=== PATIENT | female | born 1945 | race Asian ===

== ENCOUNTER 2017-06-04 10:17 | Inpatient (IN) | payer MEDICARE, OTHER ==
[2017-06-04] MEDS: morphine 4 MG/ML VIAL IV (13:05)
[2017-06-04] MEDS: ONDANSETRON 4 MG INJ IV (13:05)
[2017-06-04 13:09] LABS: ADD MAN DIFF? NO
[2017-06-04 13:14] LABS: WHITE BLOOD COUNT 8.3 10^3/ul (4.8-10.8)
[2017-06-04 13:14] LABS: BASOPHILS % 0.5 % (0.0-2.0); EOSINOPHILS # 0.2 10^3/ul (0.0-0.5); EOSINOPHILS % 2.4 % (0.0-7.0); HEMATOCRIT 36.7 % (37.0-47.0); LYMPHOCYTES # 1.6 10^3/ul (0.8-2.9); LYMPHOCYTES % 19.3 % (15.0-51.0); MEAN CORPUSCULAR HEMOGLOBIN 20.3 pg (29.0-33.0); MEAN CORPUSCULAR VOLUME 67.7 fl (82.0-101.0); MEAN PLATELET VOLUME 8.5 fl (7.4-10.4); MONOCYTE # 0.7 10^3/ul (0.3-0.9); MONOCYTES % 7.9 % (0.0-11.0); NEUTROPHIL # 5.8 10^3/ul (1.6-7.5); NEUTROPHILS % 69.5 % (39.0-77.0); PLATELET COUNT 360 10^3/UL (140-415); RED BLOOD COUNT 5.42 10^6/ul (4.20-5.40); RED CELL DISTRIBUTION WIDTH 17.7 % (11.5-14.5)
[2017-06-04 13:27] LABS: ADD UMIC YES; UR AMORPHOUS CRYSTAL FEW /HPF (NONE SEEN); UR ASCORBIC ACID NEGATIVE (NEGATIVE); UR BACTERIA FEW /HPF (NONE SEEN); UR BILIRUBIN (Dip) NEGATIVE (NEGATIVE); UR BLOOD (Dip) 3+ mg/dL (NEGATIVE); UR CLARITY SLIGHTLY CLOUDY (CLEAR); UR COLOR YELLOW (YELLOW); UR GLUCOSE (Dip) NEGATIVE (NEGATIVE); UR KETONES (Dip) NEGATIVE (NEGATIVE); UR LEUKOCYTE ESTERASE (Dip) 3+ Leu/ul (NEGATIVE); UR NITRITE (Dip) POSITIVE (NEGATIVE); UR RBC 40 /HPF (0-5); UR SPECIFIC GRAVITY (Dip) 1.015 (1.003-1.030); UR TOTAL PROTEIN (Dip) 1+ mg/dl (NEGATIVE); UR UROBILINOGEN (Dip) NEGATIVE (NEGATIVE); UR WBC > 182 /HPF (0-5)
[2017-06-04 13:38] LABS: ALANINE AMINOTRANSFERASE 32 IU/L (13-69); ALKALINE PHOSPHATASE 77 IU/L (42-121); ANION GAP 14 (8-16); ASPARTATE AMINO TRANSFERASE 28 IU/L (15-46); BILIRUBIN,INDIRECT 0.3 mg/dl (0-1.1); BILIRUBIN,TOTAL 0.3 mg/dl (0.2-1.3); BLOOD UREA NITROGEN 26 mg/dl (7-20); CALCIUM 9.2 mg/dl (8.4-10.2); CARBON DIOXIDE 29 mmol/L (21-31); CHLORIDE 107 mmol/L (97-110); CREATININE 1.41 mg/dl (0.44-1.00); GLUCOSE 110 mg/dl (70-220); LIPASE 72 U/L (23-300); POTASSIUM 4.3 mmol/L (3.5-5.1); SODIUM 146 mmol/L (135-144)
[2017-06-04 13:49] LABS: TROPONIN-I < 0.012 ng/ml (0.00-0.12)
[2017-06-04] MEDS: HYDROmorphONE 1 MG/ML SYG IV (14:29)
[2017-06-04] MEDS ORDERED: ACETAMINOPHEN 325 MG TAB PO (14:30)
[2017-06-04] MEDS ORDERED: ONDANSETRON 4 MG INJ IV (14:30)
[2017-06-04] MEDS: CEFTRIAXONE 1 GM/50 ML (PMX) 50 ML IVPB ×2 (14:41→20:04)
[2017-06-04] MEDS: DEXTROSE 5%-0.45% NACL 1,000 ML IV (20:04)
[2017-06-05 05:59] LABS: ADD MAN DIFF? NO
[2017-06-05 06:13] LABS: BASOPHILS % 0.6 % (0.0-2.0); EOSINOPHILS # 0.3 10^3/ul (0.0-0.5); EOSINOPHILS % 3.8 % (0.0-7.0); HEMATOCRIT 32.2 % (37.0-47.0); HEMOGLOBIN 9.8 g/dl (12.0-16.0); LYMPHOCYTES # 1.6 10^3/ul (0.8-2.9); LYMPHOCYTES % 22.8 % (15.0-51.0); MEAN CORPUSCULAR HEMOGLOBIN 20.4 pg (29.0-33.0); MEAN CORPUSCULAR HGB CONC 30.4 g/dl (32.0-37.0); MEAN CORPUSCULAR VOLUME 66.9 fl (82.0-101.0); MEAN PLATELET VOLUME 8.8 fl (7.4-10.4); MONOCYTE # 0.6 10^3/ul (0.3-0.9); MONOCYTES % 8.7 % (0.0-11.0); NEUTROPHIL # 4.6 10^3/ul (1.6-7.5); NEUTROPHILS % 63.8 % (39.0-77.0); PLATELET COUNT 336 10^3/UL (140-415); RED BLOOD COUNT 4.81 10^6/ul (4.20-5.40); RED CELL DISTRIBUTION WIDTH 16.6 % (11.5-14.5)
[2017-06-05 06:13] LABS: WHITE BLOOD COUNT 7.2 10^3/ul (4.8-10.8)
[2017-06-05 06:17] LABS: INR 0.91; PARTIAL THROMBOPLASTIN TIME 27.3 Sec (25.0-35.0); PROTIME 12.3 Sec (11.9-14.9)
[2017-06-05 06:35] LABS: ALANINE AMINOTRANSFERASE 33 IU/L (13-69); ALBUMIN 3.4 g/dl (3.3-4.9); ALBUMIN/GLOBULIN RATIO 1.06; ALKALINE PHOSPHATASE 67 IU/L (42-121); AMYLASE 58 U/L (11-123); ANION GAP 11 (8-16); ASPARTATE AMINO TRANSFERASE 24 IU/L (15-46); BILIRUBIN,INDIRECT 0.4 mg/dl (0-1.1); BILIRUBIN,TOTAL 0.4 mg/dl (0.2-1.3); BLOOD UREA NITROGEN 24 mg/dl (7-20); CALCIUM 8.7 mg/dl (8.4-10.2); CARBON DIOXIDE 29 mmol/L (21-31); CHLORIDE 107 mmol/L (97-110); CREATININE 1.45 mg/dl (0.44-1.00); GLUCOSE 118 mg/dl (70-220); LIPASE 52 U/L (23-300); POTASSIUM 3.9 mmol/L (3.5-5.1); SODIUM 143 mmol/L (135-144); TOTAL PROTEIN 6.6 g/dl (6.1-8.1)
[2017-06-05] MEDS: DEXTROSE 5%-0.45% NACL 1,000 ML IV ×2 (08:20→10:48)
[2017-06-05] MEDS ORDERED: ENOXAPARIN 30 MG/0.3 ML SYG SC (09:00)
[2017-06-05] MEDS: ENOXAPARIN 30 MG/0.3 ML SYG SC (09:14)
[2017-06-05] MEDS: HYDROCODONE/APAP (10/325) TAB PO ×2 (10:54→19:47)
[2017-06-05] MEDS: CEFTRIAXONE 1 GM/50 ML (PMX) 50 ML IVPB (17:32)
[2017-06-05 19:10] LABS: MAGNESIUM 1.2 mg/dl (1.7-2.5)
[2017-06-05 19:21] LABS: TROPONIN-I < 0.012 ng/ml (0.00-0.12)
[2017-06-06] MEDS: MAGNESIUM SULFATE 2 GM/50 ML 50 ML IVPB ×2 (01:12→10:05)
[2017-06-06] MEDS: DEXTROSE 5%-0.45% NACL 1,000 ML IV ×2 (03:34→11:56)
[2017-06-06] MEDS ORDERED: CEFAZOLIN 1 GM INJ (07:00)
[2017-06-06] MEDS ORDERED: MIDAZOLAM 1 MG/ML 2 ML INJ (07:31)
[2017-06-06] MEDS ORDERED: FENTAnyl 50 MCG/ML VIAL (07:31)
[2017-06-06] MEDS ORDERED: LIDOCAINE 100 MG SYRINGE (07:32)
[2017-06-06] MEDS ORDERED: PROPOFOL 20 ML (07:32)
[2017-06-06] MEDS ORDERED: METOCLOPRAMIDE 10 MG INJ (07:34)
[2017-06-06] MEDS ORDERED: ONDANSETRON 4 MG INJ (07:34)
[2017-06-06] MEDS ORDERED: DIPHENHYDRAMINE 50 MG INJ IV (08:00)
[2017-06-06] MEDS ORDERED: FENTAnyl 50 MCG/ML VIAL IV (08:00)
[2017-06-06] MEDS ORDERED: KETOROLAC 15 MG INJ IV (08:00)
[2017-06-06] MEDS ORDERED: ONDANSETRON 4 MG INJ IV (08:00)
[2017-06-06] MEDS ORDERED: HYDROmorphONE (0.2 MG/ML) 10ML SYG IV ×2 (08:00)
[2017-06-06] MEDS ORDERED: LABETALOL HCL 20MG INJ IV (08:00)
[2017-06-06] MEDS ORDERED: hydrALAzine 20 MG INJ IV (08:00)
[2017-06-06] MEDS ORDERED: METOPROLOL 5 MG INJ ×2 (08:16→08:29)
[2017-06-06] MEDS: METOPROLOL 5 MG INJ IV ×2 (08:20→09:57)
[2017-06-06] MEDS ORDERED: ESMOLOL 10 ML (08:24)
[2017-06-06] MEDS: ENOXAPARIN 30 MG/0.3 ML SYG SC (09:00)
[2017-06-06 09:10] LABS: ADD MAN DIFF? NO
[2017-06-06 09:18] LABS: BASOPHILS % 0.4 % (0.0-2.0); EOSINOPHILS # 0.3 10^3/ul (0.0-0.5); EOSINOPHILS % 3.4 % (0.0-7.0); HEMATOCRIT 35.8 % (37.0-47.0); HEMOGLOBIN 10.6 g/dl (12.0-16.0); LYMPHOCYTES # 1.5 10^3/ul (0.8-2.9); LYMPHOCYTES % 20.2 % (15.0-51.0); MEAN CORPUSCULAR HEMOGLOBIN 20.4 pg (29.0-33.0); MEAN CORPUSCULAR HGB CONC 29.6 g/dl (32.0-37.0); MEAN PLATELET VOLUME 8.6 fl (7.4-10.4); MONOCYTE # 0.6 10^3/ul (0.3-0.9); MONOCYTES % 7.8 % (0.0-11.0); NEUTROPHIL # 5.1 10^3/ul (1.6-7.5); NEUTROPHILS % 67.3 % (39.0-77.0); NUCLEATED RED BLOOD CELLS% 0.3 /100WBC (0.0-0.0); PLATELET COUNT 295 10^3/UL (140-415); RED BLOOD COUNT 5.19 10^6/ul (4.20-5.40); RED CELL DISTRIBUTION WIDTH 16.9 % (11.5-14.5)
[2017-06-06 09:18] LABS: WHITE BLOOD COUNT 7.6 10^3/ul (4.8-10.8)
[2017-06-06 09:42] LABS: ANION GAP 12 (8-16); BLOOD UREA NITROGEN 22 mg/dl (7-20); CALCIUM 8.7 mg/dl (8.4-10.2); CARBON DIOXIDE 26 mmol/L (21-31); CHLORIDE 107 mmol/L (97-110); CREATININE 1.28 mg/dl (0.44-1.00); GLUCOSE 112 mg/dl (70-220); MAGNESIUM 1.7 mg/dl (1.7-2.5); POTASSIUM 4.1 mmol/L (3.5-5.1); SODIUM 141 mmol/L (135-144)
[2017-06-06] MEDS: ACETAMINOPHEN 325 MG TAB PO (14:51)
[2017-06-06] MEDS: CEFTRIAXONE 1 GM/50 ML (PMX) 50 ML IVPB (18:15)
[2017-06-07] MEDS: DEXTROSE 5%-0.45% NACL 1,000 ML IV ×2 (00:01→12:58)
[2017-06-07 07:51] LABS: ANION GAP 11 (8-16); BLOOD UREA NITROGEN 17 mg/dl (7-20); CALCIUM 8.7 mg/dl (8.4-10.2); CARBON DIOXIDE 30 mmol/L (21-31); CHLORIDE 104 mmol/L (97-110); CREATININE 1.34 mg/dl (0.44-1.00); GLUCOSE 118 mg/dl (70-220); MAGNESIUM 1.7 mg/dl (1.7-2.5); POTASSIUM 4.5 mmol/L (3.5-5.1); SODIUM 140 mmol/L (135-144)
[2017-06-07] MEDS: ATENOLOL 25 MG TAB PO (09:31)
[2017-06-07] MEDS: ENOXAPARIN 30 MG/0.3 ML SYG SC (09:37)
[2017-06-07] MEDS: CEFTRIAXONE 1 GM/50 ML (PMX) 50 ML IVPB (17:31)
[2017-06-08] MEDS: DEXTROSE 5%-0.45% NACL 1,000 ML IV ×2 (02:48→14:57)
[2017-06-08 08:53] LABS: ADD MAN DIFF? NO
[2017-06-08] MEDS: ENOXAPARIN 30 MG/0.3 ML SYG SC (09:00)
[2017-06-08 09:01] LABS: WHITE BLOOD COUNT 7.3 10^3/ul (4.8-10.8)
[2017-06-08 09:01] LABS: BASOPHILS % 0.4 % (0.0-2.0); EOSINOPHILS # 0.4 10^3/ul (0.0-0.5); EOSINOPHILS % 5.9 % (0.0-7.0); HEMATOCRIT 33.7 % (37.0-47.0); HEMOGLOBIN 10.3 g/dl (12.0-16.0); LYMPHOCYTES # 1.6 10^3/ul (0.8-2.9); LYMPHOCYTES % 21.7 % (15.0-51.0); MEAN CORPUSCULAR HEMOGLOBIN 20.6 pg (29.0-33.0); MEAN CORPUSCULAR HGB CONC 30.6 g/dl (32.0-37.0); MEAN CORPUSCULAR VOLUME 67.4 fl (82.0-101.0); MEAN PLATELET VOLUME 8.8 fl (7.4-10.4); MONOCYTE # 0.6 10^3/ul (0.3-0.9); MONOCYTES % 7.9 % (0.0-11.0); NEUTROPHIL # 4.6 10^3/ul (1.6-7.5); NEUTROPHILS % 63.7 % (39.0-77.0); PLATELET COUNT 349 10^3/UL (140-415)
[2017-06-08 09:27] LABS: ANION GAP 13 (8-16); BLOOD UREA NITROGEN 16 mg/dl (7-20); CALCIUM 9.4 mg/dl (8.4-10.2); CARBON DIOXIDE 30 mmol/L (21-31); CHLORIDE 105 mmol/L (97-110); CREATININE 1.28 mg/dl (0.44-1.00); GLUCOSE 115 mg/dl (70-220); POTASSIUM 4.6 mmol/L (3.5-5.1); SODIUM 143 mmol/L (135-144)
[2017-06-08] MEDS: hydrALAzine 20 MG INJ IV (12:50)
[2017-06-08] MEDS: ACETAMINOPHEN 325 MG TAB PO (12:55)
[2017-06-08] MEDS ORDERED: METOPROLOL 5 MG INJ IV (14:00)
[2017-06-08] MEDS: DIGOXIN 500 MCG INJ IV (14:10)
[2017-06-08] MEDS: AMPICILLIN 500 MG in SOD CHLORIDE 0.9% 50 ML IVPB ×2 (18:07→22:06)
[2017-06-08] MEDS: METOPROLOL 25 MG TAB PO (22:06)
[2017-06-09] MEDS: hydrALAzine 20 MG INJ IV (00:51)
[2017-06-09] MEDS: morphine 2 MG INJ IV ×2 (03:01→11:56)
[2017-06-09] MEDS: AMPICILLIN 500 MG in SOD CHLORIDE 0.9% 50 ML IVPB ×3 (06:24→18:02)
[2017-06-09] MEDS: DEXTROSE 5%-0.45% NACL 1,000 ML IV ×2 (06:26→20:45)
[2017-06-09 08:22] LABS: ADD MAN DIFF? NO
[2017-06-09 08:38] LABS: BASOPHILS % 0.3 % (0.0-2.0); EOSINOPHILS # 0.1 10^3/ul (0.0-0.5); EOSINOPHILS % 0.9 % (0.0-7.0); HEMATOCRIT 35.6 % (37.0-47.0); HEMOGLOBIN 11.1 g/dl (12.0-16.0); LYMPHOCYTES # 1.3 10^3/ul (0.8-2.9); LYMPHOCYTES % 12.4 % (15.0-51.0); MEAN CORPUSCULAR HEMOGLOBIN 20.5 pg (29.0-33.0); MEAN CORPUSCULAR HGB CONC 31.2 g/dl (32.0-37.0); MEAN CORPUSCULAR VOLUME 65.7 fl (82.0-101.0); MEAN PLATELET VOLUME 9.1 fl (7.4-10.4); MONOCYTE # 0.6 10^3/ul (0.3-0.9); MONOCYTES % 5.3 % (0.0-11.0); NEUTROPHIL # 8.6 10^3/ul (1.6-7.5); NEUTROPHILS % 80.5 % (39.0-77.0); NUCLEATED RED BLOOD CELLS% 0.2 /100WBC (0.0-0.0); PLATELET COUNT 388 10^3/UL (140-415); RED BLOOD COUNT 5.42 10^6/ul (4.20-5.40); RED CELL DISTRIBUTION WIDTH 17.6 % (11.5-14.5)
[2017-06-09 08:38] LABS: WHITE BLOOD COUNT 10.7 10^3/ul (4.8-10.8)
[2017-06-09 08:55] LABS: ANION GAP 14 (8-16); BLOOD UREA NITROGEN 20 mg/dl (7-20); CALCIUM 9.5 mg/dl (8.4-10.2); CARBON DIOXIDE 26 mmol/L (21-31); CHLORIDE 102 mmol/L (97-110); GLUCOSE 134 mg/dl (70-220); POTASSIUM 4.3 mmol/L (3.5-5.1); SODIUM 138 mmol/L (135-144)
[2017-06-09] MEDS: METOPROLOL 25 MG TAB PO ×2 (09:14→20:45)
[2017-06-09] MEDS: ENOXAPARIN 30 MG/0.3 ML SYG SC (09:17)
[2017-06-09] MEDS: ONDANSETRON 4 MG INJ IV (12:02)
[2017-06-10] MEDS: AMPICILLIN 500 MG in SOD CHLORIDE 0.9% 50 ML IVPB ×2 (00:55→05:52)
[2017-06-10 09:11] LABS: ADD MAN DIFF? NO
[2017-06-10 09:40] LABS: WHITE BLOOD COUNT 6.8 10^3/ul (4.8-10.8)
[2017-06-10 09:40] LABS: BASOPHILS % 0.4 % (0.0-2.0); EOSINOPHILS # 0.6 10^3/ul (0.0-0.5); EOSINOPHILS % 8.1 % (0.0-7.0); HEMATOCRIT 37.2 % (37.0-47.0); HEMOGLOBIN 11.4 g/dl (12.0-16.0); LYMPHOCYTES # 1.1 10^3/ul (0.8-2.9); LYMPHOCYTES % 16.9 % (15.0-51.0); MEAN CORPUSCULAR HEMOGLOBIN 20.4 pg (29.0-33.0); MEAN CORPUSCULAR HGB CONC 30.6 g/dl (32.0-37.0); MEAN CORPUSCULAR VOLUME 66.7 fl (82.0-101.0); MEAN PLATELET VOLUME 8.9 fl (7.4-10.4); MONOCYTE # 0.7 10^3/ul (0.3-0.9); MONOCYTES % 10.9 % (0.0-11.0); NEUTROPHIL # 4.3 10^3/ul (1.6-7.5); NEUTROPHILS % 63.3 % (39.0-77.0); PLATELET COUNT 366 10^3/UL (140-415); RED BLOOD COUNT 5.58 10^6/ul (4.20-5.40)
[2017-06-10 09:43] LABS: ANION GAP 13 (8-16); BLOOD UREA NITROGEN 16 mg/dl (7-20); CALCIUM 9.2 mg/dl (8.4-10.2); CARBON DIOXIDE 28 mmol/L (21-31); CHLORIDE 103 mmol/L (97-110); CREATININE 1.31 mg/dl (0.44-1.00); GLUCOSE 120 mg/dl (70-220); MAGNESIUM 1.4 mg/dl (1.7-2.5); POTASSIUM 4.1 mmol/L (3.5-5.1); SODIUM 140 mmol/L (135-144)
[2017-06-10] MEDS: DEXTROSE 5%-0.45% NACL 1,000 ML IV ×2 (09:44→21:40)
[2017-06-10] MEDS: ENOXAPARIN 30 MG/0.3 ML SYG SC (09:47)
[2017-06-10] MEDS: METOPROLOL 25 MG TAB PO ×2 (09:47→21:02)
[2017-06-10] MEDS: AMOXICILLIN 500 MG CAP PO ×2 (13:46→22:25)
[2017-06-10] MEDS: MAGNESIUM SULFATE 2 GM/50 ML 50 ML IVPB (13:46)
[2017-06-10] MEDS: AMIODARONE 200 MG TAB PO (21:01)
[2017-06-11] MEDS: DEXTROSE 5%-0.45% NACL 1,000 ML IV ×2 (02:17→11:10)
[2017-06-11] MEDS: AMOXICILLIN 500 MG CAP PO ×3 (05:28→22:00)
[2017-06-11] MEDS ORDERED: CEFAZOLIN 1 GM INJ (07:00)
[2017-06-11] MEDS: AMIODARONE 200 MG TAB PO ×3 (08:12→21:00)
[2017-06-11] MEDS: METOPROLOL 25 MG TAB PO ×2 (08:12→21:00)
[2017-06-11] MEDS: ENOXAPARIN 60 MG/0.6 ML SYG SC (08:12)
[2017-06-11 09:58] LABS: ADD MAN DIFF? NO
[2017-06-11 10:03] LABS: WHITE BLOOD COUNT 5.6 10^3/ul (4.8-10.8)
[2017-06-11 10:03] LABS: BASOPHILS % 0.5 % (0.0-2.0); EOSINOPHILS # 0.6 10^3/ul (0.0-0.5); EOSINOPHILS % 10.4 % (0.0-7.0); HEMATOCRIT 36.5 % (37.0-47.0); LYMPHOCYTES # 1.4 10^3/ul (0.8-2.9); LYMPHOCYTES % 25.1 % (15.0-51.0); MEAN CORPUSCULAR HEMOGLOBIN 19.9 pg (29.0-33.0); MEAN CORPUSCULAR HGB CONC 30.1 g/dl (32.0-37.0); MEAN CORPUSCULAR VOLUME 66.1 fl (82.0-101.0); MEAN PLATELET VOLUME 8.6 fl (7.4-10.4); MONOCYTE # 0.8 10^3/ul (0.3-0.9); MONOCYTES % 13.6 % (0.0-11.0); NEUTROPHIL # 2.8 10^3/ul (1.6-7.5); NEUTROPHILS % 49.9 % (39.0-77.0); PLATELET COUNT 350 10^3/UL (140-415); RED BLOOD COUNT 5.52 10^6/ul (4.20-5.40); RED CELL DISTRIBUTION WIDTH 17.7 % (11.5-14.5)
[2017-06-11 10:21] LABS: ANION GAP 13 (8-16); BLOOD UREA NITROGEN 18 mg/dl (7-20); CALCIUM 8.6 mg/dl (8.4-10.2); CARBON DIOXIDE 27 mmol/L (21-31); CHLORIDE 104 mmol/L (97-110); CREATININE 1.33 mg/dl (0.44-1.00); GLUCOSE 108 mg/dl (70-220); POTASSIUM 4.1 mmol/L (3.5-5.1); SODIUM 140 mmol/L (135-144)
[2017-06-11] MEDS ORDERED: IOHEXOL 300MG/ML 30 ML BTL (15:43)
[2017-06-11] MEDS ORDERED: INDOMETHACIN 50 MG SUPP PR (15:44)
[2017-06-11] MEDS ORDERED: FENTAnyl 50 MCG/ML VIAL (16:52)
[2017-06-11] MEDS ORDERED: ROCURONIUM 50 MG INJ (17:23)
[2017-06-11] MEDS ORDERED: SUGAMMADEX SODIUM 200 MG/2 ML VIAL IV (17:23)
[2017-06-11] MEDS ORDERED: ETOMIDATE 20 MG INJ (17:23)
[2017-06-11] MEDS ORDERED: ONDANSETRON 4 MG INJ IV (18:00)
[2017-06-11] MEDS ORDERED: DIPHENHYDRAMINE 50 MG INJ IV (18:00)
[2017-06-11] MEDS ORDERED: EPHEDrine SULFATE 50 MG/5 ML SYG IV (18:00)
[2017-06-11] MEDS ORDERED: FENTAnyl 50 MCG/ML VIAL IV ×3 (18:00)
[2017-06-11] MEDS ORDERED: ALBUTEROL 0.083% (NEB) 2.5 MG/3 ML AMP HHN (18:00)
[2017-06-11] MEDS ORDERED: MEPERIDINE 25 MG INJ IV (18:00)
[2017-06-11] MEDS ORDERED: KETOROLAC 30 MG INJ IV (18:00)
[2017-06-11] MEDS ORDERED: METOCLOPRAMIDE 10 MG INJ IV (18:00)
[2017-06-11] MEDS ORDERED: hydrALAzine 20 MG INJ IV (18:00)
[2017-06-11] MEDS ORDERED: LABETALOL HCL 20MG INJ IV (18:00)
[2017-06-11] MEDS ORDERED: HYDROmorphONE (0.2 MG/ML) 10ML SYG IV ×2 (18:00)
[2017-06-11 18:44] LABS: CANCER ANTIGEN 19-9 27.2 U/ml (0.0-37.0)
[2017-06-11 19:09] LABS: ALPHA FETOPROTEIN 1.85 IU/L (0.00-7.21)
[2017-06-11] MEDS: morphine LIQ (10 MG/5 ML) CUP PO (19:25)
[2017-06-11] MEDS: HYDROCODONE/APAP (10/325) TAB PO (19:33)
[2017-06-11] MEDS: HYDROmorphONE 0.5 MG/0.5 ML SYG IV (20:50)
[2017-06-12] MEDS: DEXTROSE 5%-0.45% NACL 1,000 ML IV ×3 (00:09→23:12)
[2017-06-12] MEDS: HYDROmorphONE 0.5 MG/0.5 ML SYG IV ×4 (01:52→20:39)
[2017-06-12] MEDS: AMOXICILLIN 500 MG CAP PO (05:30)
[2017-06-12] MEDS: morphine 2 MG INJ IV ×2 (05:31→11:22)
[2017-06-12 08:27] LABS: ADD MAN DIFF? NO
[2017-06-12 08:33] LABS: WHITE BLOOD COUNT 9.3 10^3/ul (4.8-10.8)
[2017-06-12 08:33] LABS: BASOPHILS % 0.2 % (0.0-2.0); EOSINOPHILS # 0.1 10^3/ul (0.0-0.5); EOSINOPHILS % 1.5 % (0.0-7.0); HEMATOCRIT 36.2 % (37.0-47.0); HEMOGLOBIN 11.2 g/dl (12.0-16.0); LYMPHOCYTES # 0.8 10^3/ul (0.8-2.9); LYMPHOCYTES % 8.8 % (15.0-51.0); MEAN CORPUSCULAR HEMOGLOBIN 20.7 pg (29.0-33.0); MEAN CORPUSCULAR HGB CONC 30.9 g/dl (32.0-37.0); MEAN CORPUSCULAR VOLUME 66.9 fl (82.0-101.0); MEAN PLATELET VOLUME 9.1 fl (7.4-10.4); MONOCYTE # 0.5 10^3/ul (0.3-0.9); MONOCYTES % 5.1 % (0.0-11.0); NEUTROPHIL # 7.8 10^3/ul (1.6-7.5); NEUTROPHILS % 83.8 % (39.0-77.0); PLATELET COUNT 373 10^3/UL (140-415); RED BLOOD COUNT 5.41 10^6/ul (4.20-5.40); RED CELL DISTRIBUTION WIDTH 17.2 % (11.5-14.5)
[2017-06-12 08:53] LABS: ANION GAP 14 (8-16); BLOOD UREA NITROGEN 20 mg/dl (7-20); CALCIUM 8.2 mg/dl (8.4-10.2); CARBON DIOXIDE 28 mmol/L (21-31); CHLORIDE 100 mmol/L (97-110); CREATININE 1.25 mg/dl (0.44-1.00); GLUCOSE 135 mg/dl (70-220); POTASSIUM 4.4 mmol/L (3.5-5.1); SODIUM 138 mmol/L (135-144)
[2017-06-12] MEDS: METOPROLOL 25 MG TAB PO ×2 (08:59→21:00)
[2017-06-12] MEDS: AMIODARONE 200 MG TAB PO ×3 (08:59→21:00)
[2017-06-12] MEDS: ENOXAPARIN 60 MG/0.6 ML SYG SC (09:00)
[2017-06-12] MEDS: ONDANSETRON 4 MG INJ IV (11:22)
[2017-06-12] MEDS: ACETAMINOPHEN 325 MG TAB PO (12:29)
[2017-06-12] MEDS: PIPER-TAZO 3.375 GM IV (PMX) 100 ML IVPB ×2 (15:02→22:10)
[2017-06-12 15:57] LABS: AMYLASE 1173 U/L (11-123)
[2017-06-12 16:21] LABS: LIPASE 6085 U/L (23-300)
[2017-06-12] MEDS: VANCOMYCIN 1 GM (PMX) 250 ML IVPB (17:18)
[2017-06-13] MEDS: ONDANSETRON 4 MG INJ IV ×2 (04:45→17:59)
[2017-06-13] MEDS: HYDROmorphONE 0.5 MG/0.5 ML SYG IV ×5 (04:46→22:36)
[2017-06-13] MEDS: ACETAMINOPHEN 325 MG TAB PO ×2 (04:54→20:15)
[2017-06-13] MEDS: PIPER-TAZO 3.375 GM IV (PMX) 100 ML IVPB ×2 (06:29→13:30)
[2017-06-13 08:58] LABS: ADD MAN DIFF? NO
[2017-06-13] MEDS: METOPROLOL 25 MG TAB PO ×2 (09:00→17:58)
[2017-06-13 09:16] LABS: BASOPHILS % 0.1 % (0.0-2.0); EOSINOPHILS % 0.2 % (0.0-7.0); HEMATOCRIT 34.2 % (37.0-47.0); HEMOGLOBIN 10.4 g/dl (12.0-16.0); LYMPHOCYTES # 1.2 10^3/ul (0.8-2.9); LYMPHOCYTES % 7.4 % (15.0-51.0); MEAN CORPUSCULAR HEMOGLOBIN 20.3 pg (29.0-33.0); MEAN CORPUSCULAR HGB CONC 30.4 g/dl (32.0-37.0); MEAN CORPUSCULAR VOLUME 66.8 fl (82.0-101.0); MEAN PLATELET VOLUME 9.4 fl (7.4-10.4); MONOCYTE # 0.8 10^3/ul (0.3-0.9); MONOCYTES % 4.7 % (0.0-11.0); NEUTROPHIL # 14.5 10^3/ul (1.6-7.5); NEUTROPHILS % 86.8 % (39.0-77.0); PLATELET COUNT 333 10^3/UL (140-415); RED BLOOD COUNT 5.12 10^6/ul (4.20-5.40); RED CELL DISTRIBUTION WIDTH 16.1 % (11.5-14.5)
[2017-06-13 09:16] LABS: WHITE BLOOD COUNT 16.7 10^3/ul (4.8-10.8)
[2017-06-13] MEDS: AMIODARONE 200 MG TAB PO ×3 (09:23→21:49)
[2017-06-13 09:34] LABS: ALANINE AMINOTRANSFERASE 25 IU/L (13-69); ALBUMIN 3.1 g/dl (3.3-4.9); ALBUMIN/GLOBULIN RATIO 0.83; ALKALINE PHOSPHATASE 79 IU/L (42-121); ANION GAP 11 (8-16); ASPARTATE AMINO TRANSFERASE 29 IU/L (15-46); BLOOD UREA NITROGEN 24 mg/dl (7-20); CALCIUM 7.7 mg/dl (8.4-10.2); CARBON DIOXIDE 27 mmol/L (21-31); CHLORIDE 102 mmol/L (97-110); CREATININE 1.78 mg/dl (0.44-1.00); GLUCOSE 109 mg/dl (70-220); POTASSIUM 4.1 mmol/L (3.5-5.1); SODIUM 136 mmol/L (135-144); TOTAL PROTEIN 6.8 g/dl (6.1-8.1)
[2017-06-13] MEDS: ENOXAPARIN 80 MG/0.8 ML SYG SC (10:08)
[2017-06-13] MEDS: HYDROCODONE/APAP (10/325) TAB PO ×2 (11:57→17:59)
[2017-06-13] MEDS: SOD CHLORIDE 0.9% 1,000 ML IV (11:58)
[2017-06-13] MEDS ORDERED: VANCOMYCIN IV PER PHARMACY XX (12:30)
[2017-06-13] MEDS ORDERED: VANCOMYCIN 750 MG in DEXTROSE 5% 150 ML IVPB (14:30)
[2017-06-13] MEDS: LINEZOLID 600 MG/D5W (PMX) 300 ML IVPB ×2 (17:41→23:48)
[2017-06-13] MEDS: D5W-0.45 NACL + KCL 20 MEQ 1,000 ML IV (19:41)
[2017-06-13] MEDS: SOD CHLORIDE 0.9% 500 ML IV (21:02)
[2017-06-13] MEDS: MEROPENEM 500MG/50 ML (PMX) 50 ML IVPB (21:19)
[2017-06-14] MEDS: D5W-0.45 NACL + KCL 20 MEQ 1,000 ML IV ×4 (03:30→16:05)
[2017-06-14] MEDS: HYDROmorphONE 1 MG/ML SYG IV ×4 (04:57→19:38)
[2017-06-14] MEDS: PANTOPRAZOLE 40 MG INJ IV (05:08)
[2017-06-14 07:42] LABS: HEMATOCRIT 31.7 % (37.0-47.0); HEMOGLOBIN 9.6 g/dl (12.0-16.0); MEAN CORPUSCULAR HGB CONC 30.3 g/dl (32.0-37.0); MEAN CORPUSCULAR VOLUME 66.2 fl (82.0-101.0); MEAN PLATELET VOLUME 9.4 fl (7.4-10.4); PLATELET COUNT 297 10^3/UL (140-415); RED BLOOD COUNT 4.79 10^6/ul (4.20-5.40); RED CELL DISTRIBUTION WIDTH 16.2 % (11.5-14.5)
[2017-06-14 07:42] LABS: WHITE BLOOD COUNT 16.4 10^3/ul (4.8-10.8)
[2017-06-14 07:59] LABS: ADD MAN DIFF? YES; POSITIVE DIFF @See below
[2017-06-14] MEDS: HYDROCODONE/APAP (10/325) TAB PO ×3 (08:07→22:43)
[2017-06-14 08:14] LABS: ALANINE AMINOTRANSFERASE 31 IU/L (13-69); ALBUMIN 2.8 g/dl (3.3-4.9); ALKALINE PHOSPHATASE 68 IU/L (42-121); ANION GAP 14 (8-16); ASPARTATE AMINO TRANSFERASE 28 IU/L (15-46); BILIRUBIN,INDIRECT 0.4 mg/dl (0-1.1); BILIRUBIN,TOTAL 0.4 mg/dl (0.2-1.3); BLOOD UREA NITROGEN 26 mg/dl (7-20); CALCIUM 7.1 mg/dl (8.4-10.2); CARBON DIOXIDE 24 mmol/L (21-31); CHLORIDE 102 mmol/L (97-110); GLUCOSE 143 mg/dl (70-220); POTASSIUM 4.8 mmol/L (3.5-5.1); SODIUM 135 mmol/L (135-144); TOTAL PROTEIN 5.9 g/dl (6.1-8.1)
[2017-06-14 08:16] LABS: LIPASE 610 U/L (23-300)
[2017-06-14 08:16] LABS: AMYLASE 294 U/L (11-123)
[2017-06-14] MEDS: LINEZOLID 600 MG/D5W (PMX) 300 ML IVPB ×2 (08:48→20:22)
[2017-06-14] MEDS: AMIODARONE 200 MG TAB PO ×3 (08:50→20:23)
[2017-06-14] MEDS: METOPROLOL 25 MG TAB PO ×2 (08:50→20:23)
[2017-06-14] MEDS: ENOXAPARIN 80 MG/0.8 ML SYG SC (08:51)
[2017-06-14 09:35] LABS: ANISOCYTOSIS 1+ (0-0); BAND NEUTROPHILS % (M) 31 % (0-4); BURR CELLS 1+ (0-0); GIANT THROMBO% (M) 3 % (0-0); HYPOCHROMASIA 1+ (0-0); LYMPHOCYTES #M 0.9 10^3/ul (0.8-2.9); LYMPHOCYTES % (M) 6 % (15-51); METAMYELOCYTES #M 0.1 10^3/ul (0.0-0.0); METAMYELOCYTES %M 1 % (0-0); MONOCYTE #M 1.3 10^3/ul (0.3-0.9); MONOCYTES % (M) 8 % (0-11); PLATELET ESTIMATE NORMAL; POIKILOCYTOSIS 1+ (0-0); POLYCHROMASIA 1+ (0-0); SEG NEUT #M 9.7 10^3/ul (1.6-7.5); SEGMENTED NEUTROPHILS (M) % 54 % (39-77); SMUDGE%M 7 % (0-0)
[2017-06-14] MEDS: MEROPENEM 500MG/50 ML (PMX) 50 ML IVPB ×2 (10:05→21:18)
[2017-06-14] MEDS: ONDANSETRON 4 MG INJ IV (16:04)
[2017-06-15] MEDS: HYDROmorphONE 1 MG/ML SYG IV ×4 (00:51→19:37)
[2017-06-15] MEDS: D5W-0.45 NACL + KCL 20 MEQ 1,000 ML IV ×2 (04:35→11:30)
[2017-06-15] MEDS: PANTOPRAZOLE 40 MG INJ IV (05:22)
[2017-06-15 06:29] LABS: WHITE BLOOD COUNT 16.3 10^3/ul (4.8-10.8)
[2017-06-15 06:29] LABS: HEMATOCRIT 30.1 % (37.0-47.0); HEMOGLOBIN 9.5 g/dl (12.0-16.0); MEAN CORPUSCULAR HEMOGLOBIN 20.6 pg (29.0-33.0); MEAN CORPUSCULAR HGB CONC 31.6 g/dl (32.0-37.0); MEAN CORPUSCULAR VOLUME 65.3 fl (82.0-101.0); MEAN PLATELET VOLUME 9.7 fl (7.4-10.4); NUCLEATED RED BLOOD CELLS% 0.4 /100WBC (0.0-0.0); PLATELET COUNT 303 10^3/UL (140-415); RED BLOOD COUNT 4.61 10^6/ul (4.20-5.40)
[2017-06-15] MEDS: HYDROCODONE/APAP (10/325) TAB PO ×3 (06:56→22:15)
[2017-06-15 07:18] LABS: ADD MAN DIFF? YES; POSITIVE DIFF @See below
[2017-06-15 07:19] LABS: ANION GAP 12 (8-16); BLOOD UREA NITROGEN 25 mg/dl (7-20); CALCIUM 7.8 mg/dl (8.4-10.2); CARBON DIOXIDE 24 mmol/L (21-31); CHLORIDE 103 mmol/L (97-110); CREATININE 1.97 mg/dl (0.44-1.00); GLUCOSE 99 mg/dl (70-220); SODIUM 134 mmol/L (135-144)
[2017-06-15] MEDS: METOPROLOL 25 MG TAB PO ×2 (09:43→21:42)
[2017-06-15 09:44] LABS: ANISOCYTOSIS 1+ (0-0); BAND NEUTROPHILS % (M) 25 % (0-4); GIANT THROMBO% (M) 3 % (0-0); LYMPHOCYTES #M 1.3 10^3/ul (0.8-2.9); LYMPHOCYTES % (M) 8 % (15-51); MONOCYTE #M 0.8 10^3/ul (0.3-0.9); MONOCYTES % (M) 5 % (0-11); PLATELET ESTIMATE NORMAL; POIKILOCYTOSIS 3+ (0-0); REACTIVE LYMPHOCYTES #M 0.3 10^3/ul (0.0-0.0); REACTIVE LYMPHOCYTES% (M) 2 % (0-0); SEG NEUT #M 10.4 10^3/ul (1.6-7.5); SEGMENTED NEUTROPHILS (M) % 60 % (39-77); SMUDGE%M 22 % (0-0)
[2017-06-15] MEDS: AMIODARONE 200 MG TAB PO ×3 (09:44→21:42)
[2017-06-15] MEDS: ENOXAPARIN 80 MG/0.8 ML SYG SC (09:46)
[2017-06-15] MEDS: MEROPENEM 500MG/50 ML (PMX) 50 ML IVPB ×2 (09:51→22:15)
[2017-06-15] MEDS: LINEZOLID 600 MG/D5W (PMX) 300 ML IVPB ×2 (09:52→21:41)
[2017-06-15] MEDS: IOHEXOL 14.3 MG(I)/ML (ADULT) BTL PO (19:00)
[2017-06-16] MEDS: D5W-0.45 NACL + KCL 20 MEQ 1,000 ML IV ×5 (00:07→19:30)
[2017-06-16] MEDS: hydrALAzine 20 MG INJ IV (01:55)
[2017-06-16] MEDS: PANTOPRAZOLE 40 MG INJ IV (05:25)
[2017-06-16 06:11] LABS: ADD MAN DIFF? NO
[2017-06-16 06:17] LABS: BASOPHILS % 0.1 % (0.0-2.0); EOSINOPHILS % 0.1 % (0.0-7.0); HEMATOCRIT 28.3 % (37.0-47.0); LYMPHOCYTES # 0.8 10^3/ul (0.8-2.9); LYMPHOCYTES % 4.6 % (15.0-51.0); MEAN CORPUSCULAR HEMOGLOBIN 20.2 pg (29.0-33.0); MEAN CORPUSCULAR HGB CONC 31.8 g/dl (32.0-37.0); MEAN CORPUSCULAR VOLUME 63.6 fl (82.0-101.0); MEAN PLATELET VOLUME 9.8 fl (7.4-10.4); MONOCYTE # 0.9 10^3/ul (0.3-0.9); NEUTROPHILS % 89.4 % (39.0-77.0); NUCLEATED RED BLOOD CELLS # 0.1 10^3/ul (0.0-0.0); NUCLEATED RED BLOOD CELLS% 0.4 /100WBC (0.0-0.0); PLATELET COUNT 356 10^3/UL (140-415); RED BLOOD COUNT 4.45 10^6/ul (4.20-5.40); RED CELL DISTRIBUTION WIDTH 16.2 % (11.5-14.5)
[2017-06-16 06:17] LABS: WHITE BLOOD COUNT 17.9 10^3/ul (4.8-10.8)
[2017-06-16 06:55] LABS: ANION GAP 10 (8-16); BLOOD UREA NITROGEN 24 mg/dl (7-20); CALCIUM 8.3 mg/dl (8.4-10.2); CARBON DIOXIDE 26 mmol/L (21-31); CHLORIDE 105 mmol/L (97-110); CREATININE 1.61 mg/dl (0.44-1.00); GLUCOSE 110 mg/dl (70-220); LIPASE 48 U/L (23-300); POTASSIUM 4.9 mmol/L (3.5-5.1); SODIUM 136 mmol/L (135-144)
[2017-06-16] MEDS: AMIODARONE 200 MG TAB PO ×3 (08:00→21:02)
[2017-06-16] MEDS: LINEZOLID 600 MG/D5W (PMX) 300 ML IVPB ×2 (08:00→21:01)
[2017-06-16] MEDS: HYDROCODONE/APAP (10/325) TAB PO ×2 (08:00→19:38)
[2017-06-16] MEDS: METOPROLOL 25 MG TAB PO ×2 (08:00→21:01)
[2017-06-16] MEDS: ENOXAPARIN 80 MG/0.8 ML SYG SC (08:04)
[2017-06-16] MEDS: HYDROmorphONE 1 MG/ML SYG IV ×2 (10:31→17:07)
[2017-06-16] MEDS: MEROPENEM 500MG/50 ML (PMX) 50 ML IVPB ×2 (10:31→22:27)
[2017-06-17] MEDS: HYDROmorphONE 0.5 MG/0.5 ML SYG IV (02:15)
[2017-06-17] MEDS: D5W-0.45 NACL + KCL 20 MEQ 1,000 ML IV ×4 (02:16→19:30)
[2017-06-17] MEDS: PANTOPRAZOLE 40 MG INJ IV (05:05)
[2017-06-17] MEDS: HYDROCODONE/APAP (10/325) TAB PO ×3 (05:05→22:46)
[2017-06-17] MEDS: LINEZOLID 600 MG/D5W (PMX) 300 ML IVPB ×2 (08:42→20:42)
[2017-06-17] MEDS: AMIODARONE 200 MG TAB PO ×3 (08:43→20:43)
[2017-06-17] MEDS: METOPROLOL 25 MG TAB PO ×2 (08:43→20:43)
[2017-06-17] MEDS: ENOXAPARIN 80 MG/0.8 ML SYG SC (08:51)
[2017-06-17] MEDS: MEROPENEM 500MG/50 ML (PMX) 50 ML IVPB ×2 (10:32→22:40)
[2017-06-17 10:55] LABS: ABNORMAL IP MESSAGE 1; HEMATOCRIT 28.2 % (37.0-47.0); HEMOGLOBIN 9.2 g/dl (12.0-16.0); MEAN CORPUSCULAR HEMOGLOBIN 20.3 pg (29.0-33.0); MEAN CORPUSCULAR HGB CONC 32.6 g/dl (32.0-37.0); MEAN CORPUSCULAR VOLUME 62.1 fl (82.0-101.0); MEAN PLATELET VOLUME 9.2 fl (7.4-10.4); NUCLEATED RED BLOOD CELLS% 0.4 /100WBC (0.0-0.0); PLATELET COUNT 357 10^3/UL (140-415); RED BLOOD COUNT 4.54 10^6/ul (4.20-5.40)
[2017-06-17 10:55] LABS: WHITE BLOOD COUNT 18.1 10^3/ul (4.8-10.8)
[2017-06-17 10:56] LABS: ADD MAN DIFF? YES; POSITIVE DIFF @See below
[2017-06-17 11:17] LABS: ANION GAP 12 (8-16); BLOOD UREA NITROGEN 18 mg/dl (7-20); CALCIUM 8.3 mg/dl (8.4-10.2); CARBON DIOXIDE 27 mmol/L (21-31); CHLORIDE 99 mmol/L (97-110); GLUCOSE 154 mg/dl (70-220); POTASSIUM 5.1 mmol/L (3.5-5.1); SODIUM 133 mmol/L (135-144)
[2017-06-17 11:28] LABS: AMYLASE 37 U/L (11-123)
[2017-06-17 11:28] LABS: LIPASE 68 U/L (23-300)
[2017-06-17 11:37] LABS: ANISOCYTOSIS 1+ (0-0); BAND NEUTROPHILS #M 2.1 10^3/ul (0.0-0.6); BAND NEUTROPHILS % (M) 12 % (0-4); ERYTHROBLAST% (NRBC) (M) 1 % (0-0); HYPOCHROMASIA 1+ (0-0); LYMPHOCYTES #M 0.7 10^3/ul (0.8-2.9); LYMPHOCYTES % (M) 4 % (15-51); MONOCYTE #M 0.5 10^3/ul (0.3-0.9); MONOCYTES % (M) 3 % (0-11); PLATELET ESTIMATE NORMAL; POLYCHROMASIA 3+ (0-0); SEGMENTED NEUTROPHILS (M) % 81 % (39-77); SMUDGE%M 7 % (0-0)
[2017-06-17] MEDS: hydrALAzine 20 MG INJ IV (14:10)
[2017-06-17] MEDS: ALBUTEROL/IPRATROPIUM (NEB) 3 ML AMP HHN (21:55)
[2017-06-17] MEDS ORDERED: ALBUTEROL/IPRATROPIUM (NEB) 3 ML AMP HHN (22:00)
[2017-06-18] MEDS: D5W-0.45 NACL + KCL 20 MEQ 1,000 ML IV ×4 (01:26→19:30)
[2017-06-18] MEDS: HYDROmorphONE 0.5 MG/0.5 ML SYG IV ×3 (02:33→18:21)
[2017-06-18] MEDS: PANTOPRAZOLE 40 MG INJ IV (05:25)
[2017-06-18] MEDS: ALBUTEROL/IPRATROPIUM (NEB) 3 ML AMP HHN ×2 (06:21→18:05)
[2017-06-18] MEDS: LINEZOLID 600 MG/D5W (PMX) 300 ML IVPB ×2 (09:00→20:09)
[2017-06-18] MEDS: AMIODARONE 200 MG TAB PO ×2 (09:01→20:10)
[2017-06-18] MEDS: METOPROLOL 25 MG TAB PO ×2 (09:01→20:10)
[2017-06-18] MEDS: ENOXAPARIN 80 MG/0.8 ML SYG SC (09:02)
[2017-06-18] MEDS: MEROPENEM 500MG/50 ML (PMX) 50 ML IVPB ×2 (10:59→22:12)
[2017-06-18] MEDS: HYDROCODONE/APAP (10/325) TAB PO ×2 (11:00→20:17)
[2017-06-18 12:04] LABS: ADD MAN DIFF? NO
[2017-06-18 12:14] LABS: WHITE BLOOD COUNT 17.7 10^3/ul (4.8-10.8)
[2017-06-18 12:14] LABS: BASOPHILS % 0.2 % (0.0-2.0); EOSINOPHILS % 0.1 % (0.0-7.0); HEMATOCRIT 27.2 % (37.0-47.0); HEMOGLOBIN 8.9 g/dl (12.0-16.0); LYMPHOCYTES # 1.1 10^3/ul (0.8-2.9); MEAN CORPUSCULAR HEMOGLOBIN 20.1 pg (29.0-33.0); MEAN CORPUSCULAR HGB CONC 32.7 g/dl (32.0-37.0); MEAN CORPUSCULAR VOLUME 61.4 fl (82.0-101.0); MEAN PLATELET VOLUME 9.9 fl (7.4-10.4); MONOCYTE # 1.1 10^3/ul (0.3-0.9); MONOCYTES % 6.2 % (0.0-11.0); NEUTROPHIL # 14.7 10^3/ul (1.6-7.5); NEUTROPHILS % 83.1 % (39.0-77.0); NUCLEATED RED BLOOD CELLS% 0.2 /100WBC (0.0-0.0); PLATELET COUNT 341 10^3/UL (140-415); RED BLOOD COUNT 4.43 10^6/ul (4.20-5.40); RED CELL DISTRIBUTION WIDTH 15.9 % (11.5-14.5)
[2017-06-18 12:22] LABS: ALANINE AMINOTRANSFERASE 28 IU/L (13-69); ALBUMIN 2.9 g/dl (3.3-4.9); ALBUMIN/GLOBULIN RATIO 0.87; ALKALINE PHOSPHATASE 147 IU/L (42-121); ANION GAP 10 (8-16); ASPARTATE AMINO TRANSFERASE 20 IU/L (15-46); BILIRUBIN,INDIRECT 0.5 mg/dl (0-1.1); BILIRUBIN,TOTAL 0.5 mg/dl (0.2-1.3); BLOOD UREA NITROGEN 15 mg/dl (7-20); CALCIUM 7.9 mg/dl (8.4-10.2); CARBON DIOXIDE 25 mmol/L (21-31); CHLORIDE 100 mmol/L (97-110); CREATININE 1.12 mg/dl (0.44-1.00); GLUCOSE 119 mg/dl (70-220); POTASSIUM 4.3 mmol/L (3.5-5.1); SODIUM 131 mmol/L (135-144); TOTAL PROTEIN 6.2 g/dl (6.1-8.1)
[2017-06-18] MEDS: NIFEdipine (XL) 30 MG TAB PO (14:23)
[2017-06-19] MEDS: D5W-0.45 NACL + KCL 20 MEQ 1,000 ML IV ×3 (01:00→20:02)
[2017-06-19] MEDS: HYDROCODONE/APAP (10/325) TAB PO ×2 (07:03→22:19)
[2017-06-19] MEDS: PANTOPRAZOLE 40 MG INJ IV (07:03)
[2017-06-19] MEDS: ALBUTEROL/IPRATROPIUM (NEB) 3 ML AMP HHN ×2 (07:34→20:59)
[2017-06-19] MEDS: NIFEdipine (XL) 30 MG TAB PO (08:58)
[2017-06-19] MEDS: METOPROLOL 25 MG TAB PO ×2 (08:58→20:06)
[2017-06-19] MEDS: AMIODARONE 200 MG TAB PO ×2 (08:59→20:05)
[2017-06-19] MEDS: ENOXAPARIN 40 MG/0.4 ML SYG SC (09:01)
[2017-06-19] MEDS: LINEZOLID 600 MG/D5W (PMX) 300 ML IVPB (09:07)
[2017-06-19 10:02] LABS: ADD MAN DIFF? NO
[2017-06-19 10:15] LABS: BASOPHILS % 0.1 % (0.0-2.0); EOSINOPHILS % 0.2 % (0.0-7.0); HEMATOCRIT 28.4 % (37.0-47.0); HEMOGLOBIN 9.3 g/dl (12.0-16.0); LYMPHOCYTES # 0.9 10^3/ul (0.8-2.9); LYMPHOCYTES % 4.3 % (15.0-51.0); MEAN CORPUSCULAR HGB CONC 32.7 g/dl (32.0-37.0); MEAN CORPUSCULAR VOLUME 60.9 fl (82.0-101.0); MEAN PLATELET VOLUME 10.4 fl (7.4-10.4); MONOCYTE # 1.1 10^3/ul (0.3-0.9); MONOCYTES % 5.4 % (0.0-11.0); NEUTROPHIL # 17.2 10^3/ul (1.6-7.5); NEUTROPHILS % 85.8 % (39.0-77.0); NUCLEATED RED BLOOD CELLS% 0.1 /100WBC (0.0-0.0); PLATELET COUNT 360 10^3/UL (140-415); RED BLOOD COUNT 4.66 10^6/ul (4.20-5.40); RED CELL DISTRIBUTION WIDTH 15.8 % (11.5-14.5)
[2017-06-19 10:15] LABS: WHITE BLOOD COUNT 20.1 10^3/ul (4.8-10.8)
[2017-06-19] MEDS: MEROPENEM 500MG/50 ML (PMX) 50 ML IVPB ×2 (10:32→22:19)
[2017-06-19 10:40] LABS: ANION GAP 10 (8-16); BLOOD UREA NITROGEN 13 mg/dl (7-20); CARBON DIOXIDE 27 mmol/L (21-31); CHLORIDE 98 mmol/L (97-110); CREATININE 1.16 mg/dl (0.44-1.00); GLUCOSE 129 mg/dl (70-220); POTASSIUM 4.4 mmol/L (3.5-5.1); SODIUM 131 mmol/L (135-144)
[2017-06-19] MEDS: HYDROmorphONE 0.5 MG/0.5 ML SYG IV (18:09)
[2017-06-19] MEDS: ONDANSETRON 4 MG INJ IV (18:09)
[2017-06-20] MEDS: HYDROCODONE/APAP (10/325) TAB PO ×2 (06:20→21:07)
[2017-06-20] MEDS: PANTOPRAZOLE 40 MG INJ IV (06:21)
[2017-06-20] MEDS: D5W-0.45 NACL + KCL 20 MEQ 1,000 ML IV ×3 (06:33→17:41)
[2017-06-20 06:48] LABS: ADD MAN DIFF? NO
[2017-06-20 06:51] LABS: WHITE BLOOD COUNT 19.2 10^3/ul (4.8-10.8)
[2017-06-20 06:51] LABS: BASOPHILS % 0.2 % (0.0-2.0); EOSINOPHILS # 0.1 10^3/ul (0.0-0.5); EOSINOPHILS % 0.3 % (0.0-7.0); HEMATOCRIT 26.4 % (37.0-47.0); HEMOGLOBIN 8.8 g/dl (12.0-16.0); LYMPHOCYTES # 1.1 10^3/ul (0.8-2.9); LYMPHOCYTES % 5.7 % (15.0-51.0); MEAN CORPUSCULAR HEMOGLOBIN 20.2 pg (29.0-33.0); MEAN CORPUSCULAR HGB CONC 33.3 g/dl (32.0-37.0); MEAN CORPUSCULAR VOLUME 60.6 fl (82.0-101.0); MONOCYTE # 1.1 10^3/ul (0.3-0.9); MONOCYTES % 5.8 % (0.0-11.0); NEUTROPHIL # 16.2 10^3/ul (1.6-7.5); NEUTROPHILS % 84.1 % (39.0-77.0); NUCLEATED RED BLOOD CELLS% 0.2 /100WBC (0.0-0.0); PLATELET COUNT 346 10^3/UL (140-415); RED BLOOD COUNT 4.36 10^6/ul (4.20-5.40); RED CELL DISTRIBUTION WIDTH 15.2 % (11.5-14.5)
[2017-06-20 07:28] LABS: ALANINE AMINOTRANSFERASE 27 IU/L (13-69); ALBUMIN 2.7 g/dl (3.3-4.9); ALBUMIN/GLOBULIN RATIO 0.79; ALKALINE PHOSPHATASE 157 IU/L (42-121); ANION GAP 9 (8-16); ASPARTATE AMINO TRANSFERASE 19 IU/L (15-46); BILIRUBIN,INDIRECT 0.6 mg/dl (0-1.1); BILIRUBIN,TOTAL 0.6 mg/dl (0.2-1.3); BLOOD UREA NITROGEN 11 mg/dl (7-20); CALCIUM 7.9 mg/dl (8.4-10.2); CARBON DIOXIDE 30 mmol/L (21-31); CHLORIDE 97 mmol/L (97-110); CREATININE 1.22 mg/dl (0.44-1.00); GLUCOSE 116 mg/dl (70-220); POTASSIUM 4.8 mmol/L (3.5-5.1); SODIUM 131 mmol/L (135-144); TOTAL PROTEIN 6.1 g/dl (6.1-8.1)
[2017-06-20] MEDS: NIFEdipine (XL) 30 MG TAB PO (08:41)
[2017-06-20] MEDS: AMIODARONE 200 MG TAB PO ×2 (08:41→21:04)
[2017-06-20] MEDS: METOPROLOL 25 MG TAB PO ×2 (08:41→21:04)
[2017-06-20] MEDS: MEROPENEM 500MG/50 ML (PMX) 50 ML IVPB ×2 (10:38→21:42)
[2017-06-20] MEDS: HYDROmorphONE 0.5 MG/0.5 ML SYG IV ×2 (13:18→17:44)
[2017-06-21] MEDS: HYDROmorphONE 0.5 MG/0.5 ML SYG IV ×4 (00:37→15:05)
[2017-06-21] MEDS: D5W-0.45 NACL + KCL 20 MEQ 1,000 ML IV ×3 (02:35→11:34)
[2017-06-21] MEDS: PANTOPRAZOLE 40 MG INJ IV (05:02)
[2017-06-21] MEDS: AMIODARONE 200 MG TAB PO ×3 (09:00→21:14)
[2017-06-21] MEDS: METOPROLOL 25 MG TAB PO ×3 (09:00→21:13)
[2017-06-21] MEDS: NIFEdipine (XL) 30 MG TAB PO ×2 (09:00→09:52)
[2017-06-21] MEDS: MEROPENEM 500MG/50 ML (PMX) 50 ML IVPB ×2 (09:51→21:15)
[2017-06-21 11:27] LABS: ADD MAN DIFF? NO
[2017-06-21 11:29] LABS: BASOPHILS % 0.1 % (0.0-2.0); EOSINOPHILS # 0.1 10^3/ul (0.0-0.5); EOSINOPHILS % 0.5 % (0.0-7.0); HEMATOCRIT 25.5 % (37.0-47.0); HEMOGLOBIN 8.6 g/dl (12.0-16.0); LYMPHOCYTES # 0.9 10^3/ul (0.8-2.9); LYMPHOCYTES % 4.7 % (15.0-51.0); MEAN CORPUSCULAR HEMOGLOBIN 20.6 pg (29.0-33.0); MEAN CORPUSCULAR HGB CONC 33.7 g/dl (32.0-37.0); MEAN CORPUSCULAR VOLUME 61.2 fl (82.0-101.0); MEAN PLATELET VOLUME 8.9 fl (7.4-10.4); MONOCYTE # 1.2 10^3/ul (0.3-0.9); MONOCYTES % 6.1 % (0.0-11.0); NEUTROPHIL # 16.3 10^3/ul (1.6-7.5); NEUTROPHILS % 86.1 % (39.0-77.0); NUCLEATED RED BLOOD CELLS% 0.2 /100WBC (0.0-0.0); PLATELET COUNT 337 10^3/UL (140-415); RED BLOOD COUNT 4.17 10^6/ul (4.20-5.40); RED CELL DISTRIBUTION WIDTH 15.8 % (11.5-14.5)
[2017-06-21 11:54] LABS: ANION GAP 9 (8-16); BLOOD UREA NITROGEN 11 mg/dl (7-20); CALCIUM 8.1 mg/dl (8.4-10.2); CARBON DIOXIDE 30 mmol/L (21-31); CHLORIDE 96 mmol/L (97-110); CREATININE 1.24 mg/dl (0.44-1.00); GLUCOSE 118 mg/dl (70-220); POTASSIUM 5.3 mmol/L (3.5-5.1); SODIUM 130 mmol/L (135-144)
[2017-06-21] MEDS: DEXTROSE 5%-0.45% NACL 1,000 ML IV ×2 (14:25→23:04)
[2017-06-21 15:03] LABS: ANION GAP 8 (8-16); BLOOD UREA NITROGEN 11 mg/dl (7-20); CALCIUM 8.1 mg/dl (8.4-10.2); CARBON DIOXIDE 30 mmol/L (21-31); CHLORIDE 96 mmol/L (97-110); CREATININE 1.18 mg/dl (0.44-1.00); GLUCOSE 104 mg/dl (70-220); POTASSIUM 5.3 mmol/L (3.5-5.1); SODIUM 129 mmol/L (135-144)
[2017-06-21 17:30] LABS: ADD UMIC YES; UR ASCORBIC ACID NEGATIVE (NEGATIVE); UR BILIRUBIN (Dip) NEGATIVE (NEGATIVE); UR BLOOD (Dip) 3+ mg/dL (NEGATIVE); UR CLARITY CLOUDY (CLEAR); UR COLOR YELLOW (YELLOW); UR GLUCOSE (Dip) NEGATIVE (NEGATIVE); UR KETONES (Dip) NEGATIVE (NEGATIVE); UR LEUKOCYTE ESTERASE (Dip) 3+ Leu/ul (NEGATIVE); UR NITRITE (Dip) NEGATIVE (NEGATIVE); UR RBC > 182 /HPF (0-5); UR SPECIFIC GRAVITY (Dip) 1.008 (1.003-1.030); UR TOTAL PROTEIN (Dip) 2+ mg/dl (NEGATIVE); UR UROBILINOGEN (Dip) NEGATIVE (NEGATIVE); UR WBC > 182 /HPF (0-5)
[2017-06-21] MEDS: HYDROCODONE/APAP (10/325) TAB PO (19:46)
[2017-06-22] MEDS: NA POLYST SULFON 15 GM/60 ML BTL PO ×2 (00:14→00:16)
[2017-06-22] MEDS: HYDROmorphONE 0.5 MG/0.5 ML SYG IV ×4 (01:27→20:25)
[2017-06-22] MEDS: PANTOPRAZOLE 40 MG INJ IV (06:58)
[2017-06-22] MEDS: DEXTROSE 5%-0.45% NACL 1,000 ML IV ×3 (06:59→22:30)
[2017-06-22] MEDS: NIFEdipine (XL) 30 MG TAB PO (08:49)
[2017-06-22] MEDS: METOPROLOL 25 MG TAB PO ×2 (08:52→21:00)
[2017-06-22] MEDS: AMIODARONE 200 MG TAB PO ×2 (08:52→20:25)
[2017-06-22] MEDS: MEROPENEM 500MG/50 ML (PMX) 50 ML IVPB ×2 (09:27→22:11)
[2017-06-22 11:07] LABS: ADD MAN DIFF? NO
[2017-06-22 11:13] LABS: BASOPHILS % 0.2 % (0.0-2.0); EOSINOPHILS # 0.1 10^3/ul (0.0-0.5); EOSINOPHILS % 0.5 % (0.0-7.0); HEMATOCRIT 26.6 % (37.0-47.0); HEMOGLOBIN 8.7 g/dl (12.0-16.0); LYMPHOCYTES # 0.9 10^3/ul (0.8-2.9); LYMPHOCYTES % 5.9 % (15.0-51.0); MEAN CORPUSCULAR HEMOGLOBIN 20.1 pg (29.0-33.0); MEAN CORPUSCULAR HGB CONC 32.7 g/dl (32.0-37.0); MEAN CORPUSCULAR VOLUME 61.4 fl (82.0-101.0); MONOCYTES % 6.2 % (0.0-11.0); NEUTROPHIL # 13.5 10^3/ul (1.6-7.5); NEUTROPHILS % 85.3 % (39.0-77.0); NUCLEATED RED BLOOD CELLS% 0.1 /100WBC (0.0-0.0); PLATELET COUNT 382 10^3/UL (140-415); RED BLOOD COUNT 4.33 10^6/ul (4.20-5.40)
[2017-06-22 11:13] LABS: WHITE BLOOD COUNT 15.9 10^3/ul (4.8-10.8)
[2017-06-22 11:35] LABS: ANION GAP 11 (8-16); BLOOD UREA NITROGEN 11 mg/dl (7-20); CARBON DIOXIDE 27 mmol/L (21-31); CHLORIDE 97 mmol/L (97-110); CREATININE 1.05 mg/dl (0.44-1.00); GLUCOSE 118 mg/dl (70-220); POTASSIUM 4.8 mmol/L (3.5-5.1); SODIUM 130 mmol/L (135-144)
[2017-06-22] MEDS: HYDROCODONE/APAP (10/325) TAB PO (23:54)
[2017-06-23] MEDS: DEXTROSE 5%-0.45% NACL 1,000 ML IV ×5 (01:08→22:30)
[2017-06-23] MEDS: HYDROmorphONE 0.5 MG/0.5 ML SYG IV ×3 (02:09→20:57)
[2017-06-23 06:03] LABS: ADD MAN DIFF? NO
[2017-06-23 06:14] LABS: WHITE BLOOD COUNT 13.1 10^3/ul (4.8-10.8)
[2017-06-23 06:14] LABS: BASOPHILS % 0.2 % (0.0-2.0); EOSINOPHILS # 0.1 10^3/ul (0.0-0.5); EOSINOPHILS % 0.8 % (0.0-7.0); HEMATOCRIT 24.5 % (37.0-47.0); HEMOGLOBIN 8.1 g/dl (12.0-16.0); LYMPHOCYTES # 1.1 10^3/ul (0.8-2.9); LYMPHOCYTES % 8.1 % (15.0-51.0); MEAN CORPUSCULAR HEMOGLOBIN 20.2 pg (29.0-33.0); MEAN CORPUSCULAR HGB CONC 33.1 g/dl (32.0-37.0); MEAN CORPUSCULAR VOLUME 61.1 fl (82.0-101.0); MEAN PLATELET VOLUME 9.7 fl (7.4-10.4); MONOCYTES % 7.9 % (0.0-11.0); NEUTROPHIL # 10.6 10^3/ul (1.6-7.5); NEUTROPHILS % 80.8 % (39.0-77.0); NUCLEATED RED BLOOD CELLS% 0.2 /100WBC (0.0-0.0); PLATELET COUNT 378 10^3/UL (140-415); RED BLOOD COUNT 4.01 10^6/ul (4.20-5.40); RED CELL DISTRIBUTION WIDTH 15.9 % (11.5-14.5)
[2017-06-23] MEDS: PANTOPRAZOLE 40 MG INJ IV (06:25)
[2017-06-23 06:39] LABS: ANION GAP 8 (8-16); BLOOD UREA NITROGEN 10 mg/dl (7-20); CALCIUM 7.8 mg/dl (8.4-10.2); CARBON DIOXIDE 30 mmol/L (21-31); CHLORIDE 100 mmol/L (97-110); CREATININE 1.06 mg/dl (0.44-1.00); GLUCOSE 135 mg/dl (70-220); LIPASE 263 U/L (23-300); POTASSIUM 4.6 mmol/L (3.5-5.1); SODIUM 133 mmol/L (135-144)
[2017-06-23] MEDS: METOPROLOL 25 MG TAB PO ×3 (09:00→22:06)
[2017-06-23] MEDS: NIFEdipine (XL) 30 MG TAB PO (09:00)
[2017-06-23] MEDS: HYDROCODONE/APAP (10/325) TAB PO ×2 (09:24→19:08)
[2017-06-23] MEDS: MEROPENEM 500MG/50 ML (PMX) 50 ML IVPB ×2 (09:29→22:00)
[2017-06-23] MEDS: AMIODARONE 200 MG TAB PO ×2 (09:30→21:02)
[2017-06-24] MEDS: HYDROCODONE/APAP (10/325) TAB PO ×2 (04:19→16:48)
[2017-06-24] MEDS: DEXTROSE 5%-0.45% NACL 1,000 ML IV ×4 (05:38→23:30)
[2017-06-24] MEDS: PANTOPRAZOLE 40 MG INJ IV (05:38)
[2017-06-24] MEDS: HYDROmorphONE 0.5 MG/0.5 ML SYG IV ×4 (05:44→22:35)
[2017-06-24 06:09] LABS: ADD MAN DIFF? NO
[2017-06-24 06:18] LABS: BASOPHILS % 0.2 % (0.0-2.0); EOSINOPHILS # 0.1 10^3/ul (0.0-0.5); EOSINOPHILS % 0.8 % (0.0-7.0); HEMATOCRIT 24.3 % (37.0-47.0); HEMOGLOBIN 7.9 g/dl (12.0-16.0); LYMPHOCYTES # 0.7 10^3/ul (0.8-2.9); LYMPHOCYTES % 5.6 % (15.0-51.0); MEAN CORPUSCULAR HEMOGLOBIN 20.1 pg (29.0-33.0); MEAN CORPUSCULAR HGB CONC 32.5 g/dl (32.0-37.0); MEAN CORPUSCULAR VOLUME 61.7 fl (82.0-101.0); MEAN PLATELET VOLUME 8.8 fl (7.4-10.4); MONOCYTE # 0.9 10^3/ul (0.3-0.9); MONOCYTES % 7.1 % (0.0-11.0); NEUTROPHIL # 10.8 10^3/ul (1.6-7.5); NUCLEATED RED BLOOD CELLS% 0.2 /100WBC (0.0-0.0); PLATELET COUNT 396 10^3/UL (140-415); RED BLOOD COUNT 3.94 10^6/ul (4.20-5.40); RED CELL DISTRIBUTION WIDTH 15.6 % (11.5-14.5)
[2017-06-24 06:18] LABS: WHITE BLOOD COUNT 12.7 10^3/ul (4.8-10.8)
[2017-06-24 07:01] LABS: ANION GAP 9 (8-16); BLOOD UREA NITROGEN 8 mg/dl (7-20); CALCIUM 7.9 mg/dl (8.4-10.2); CARBON DIOXIDE 31 mmol/L (21-31); CHLORIDE 99 mmol/L (97-110); CREATININE 1.09 mg/dl (0.44-1.00); GLUCOSE 126 mg/dl (70-220); POTASSIUM 4.3 mmol/L (3.5-5.1); SODIUM 135 mmol/L (135-144)
[2017-06-24] MEDS: AMIODARONE 200 MG TAB PO ×2 (08:43→21:17)
[2017-06-24] MEDS: NIFEdipine (XL) 30 MG TAB PO (08:54)
[2017-06-24] MEDS: METOPROLOL 25 MG TAB PO ×2 (08:54→21:18)
[2017-06-24] MEDS: ENOXAPARIN 40 MG/0.4 ML SYG SC (08:54)
[2017-06-24] MEDS: MEROPENEM 500MG/50 ML (PMX) 50 ML IVPB ×2 (09:55→21:15)
[2017-06-24] MEDS ORDERED: IOHEXOL 14.3 MG(I)/ML (ADULT) BTL PO (17:30)
[2017-06-25] MEDS: HYDROmorphONE 0.5 MG/0.5 ML SYG IV ×5 (02:55→20:57)
[2017-06-25] MEDS: PANTOPRAZOLE 40 MG INJ IV (05:47)
[2017-06-25] MEDS: IOHEXOL 14.3 MG(I)/ML (ADULT) BTL PO (07:30)
[2017-06-25 09:52] LABS: ANION GAP 8 (8-16); BLOOD UREA NITROGEN 9 mg/dl (7-20); CALCIUM 7.9 mg/dl (8.4-10.2); CARBON DIOXIDE 31 mmol/L (21-31); CHLORIDE 98 mmol/L (97-110); CREATININE 1.08 mg/dl (0.44-1.00); GLUCOSE 112 mg/dl (70-220); POTASSIUM 4.3 mmol/L (3.5-5.1); SODIUM 133 mmol/L (135-144)
[2017-06-25] MEDS: AMIODARONE 200 MG TAB PO ×2 (10:21→20:57)
[2017-06-25] MEDS: NIFEdipine (XL) 30 MG TAB PO (10:21)
[2017-06-25] MEDS: METOPROLOL 25 MG TAB PO ×2 (10:21→20:57)
[2017-06-25] MEDS: ENOXAPARIN 40 MG/0.4 ML SYG SC (10:24)
[2017-06-25] MEDS: MEROPENEM 500MG/50 ML (PMX) 50 ML IVPB ×2 (10:28→21:00)
[2017-06-25] MEDS: DEXTROSE 5%-0.45% NACL 1,000 ML IV ×2 (10:28→13:10)
[2017-06-26] MEDS: DEXTROSE 5%-0.45% NACL 1,000 ML IV ×2 (00:12→16:05)
[2017-06-26] MEDS: HYDROmorphONE 0.5 MG/0.5 ML SYG IV ×6 (01:11→22:48)
[2017-06-26] MEDS: PANTOPRAZOLE 40 MG INJ IV (05:35)
[2017-06-26 05:48] LABS: ADD MAN DIFF? NO
[2017-06-26 06:01] LABS: WHITE BLOOD COUNT 8.6 10^3/ul (4.8-10.8)
[2017-06-26 06:01] LABS: BASOPHILS % 0.3 % (0.0-2.0); EOSINOPHILS # 0.1 10^3/ul (0.0-0.5); EOSINOPHILS % 1.6 % (0.0-7.0); HEMOGLOBIN 7.7 g/dl (12.0-16.0); LYMPHOCYTES # 0.9 10^3/ul (0.8-2.9); LYMPHOCYTES % 9.9 % (15.0-51.0); MEAN CORPUSCULAR HEMOGLOBIN 20.7 pg (29.0-33.0); MEAN CORPUSCULAR HGB CONC 33.5 g/dl (32.0-37.0); MEAN CORPUSCULAR VOLUME 61.8 fl (82.0-101.0); MEAN PLATELET VOLUME 9.3 fl (7.4-10.4); MONOCYTE # 0.6 10^3/ul (0.3-0.9); MONOCYTES % 7.3 % (0.0-11.0); NEUTROPHIL # 6.9 10^3/ul (1.6-7.5); NEUTROPHILS % 80.1 % (39.0-77.0); PLATELET COUNT 416 10^3/UL (140-415); RED BLOOD COUNT 3.72 10^6/ul (4.20-5.40); RED CELL DISTRIBUTION WIDTH 15.9 % (11.5-14.5)
[2017-06-26 06:16] LABS: ANION GAP 9 (8-16); BLOOD UREA NITROGEN 9 mg/dl (7-20); CARBON DIOXIDE 33 mmol/L (21-31); CHLORIDE 98 mmol/L (97-110); GLUCOSE 116 mg/dl (70-220); POTASSIUM 4.4 mmol/L (3.5-5.1); SODIUM 136 mmol/L (135-144)
[2017-06-26 06:17] LABS: LIPASE 202 U/L (23-300)
[2017-06-26] MEDS: AMIODARONE 200 MG TAB PO ×2 (08:44→20:53)
[2017-06-26] MEDS: NIFEdipine (XL) 30 MG TAB PO (08:45)
[2017-06-26] MEDS: METOPROLOL 25 MG TAB PO ×2 (08:45→20:53)
[2017-06-26] MEDS: ENOXAPARIN 40 MG/0.4 ML SYG SC (08:46)
[2017-06-26] MEDS: MEROPENEM 500MG/50 ML (PMX) 50 ML IVPB ×2 (09:40→22:47)
[2017-06-27] MEDS: DEXTROSE 5%-0.45% NACL 1,000 ML IV ×2 (03:22→17:42)
[2017-06-27] MEDS: PANTOPRAZOLE 40 MG INJ IV (05:12)
[2017-06-27] MEDS: HYDROmorphONE 0.5 MG/0.5 ML SYG IV ×4 (05:12→20:03)
[2017-06-27 06:21] LABS: ANION GAP 14 (8-16); BLOOD UREA NITROGEN 10 mg/dl (7-20); CALCIUM 8.3 mg/dl (8.4-10.2); CARBON DIOXIDE 31 mmol/L (21-31); CHLORIDE 96 mmol/L (97-110); CREATININE 1.05 mg/dl (0.44-1.00); GLUCOSE 116 mg/dl (70-220); POTASSIUM 4.5 mmol/L (3.5-5.1); SODIUM 136 mmol/L (135-144)
[2017-06-27] MEDS: NIFEdipine (XL) 30 MG TAB PO (08:41)
[2017-06-27] MEDS: AMIODARONE 200 MG TAB PO ×2 (08:41→20:15)
[2017-06-27] MEDS: METOPROLOL 25 MG TAB PO ×2 (08:41→20:16)
[2017-06-27] MEDS: HYDROCODONE/APAP (10/325) TAB PO (08:42)
[2017-06-27] MEDS: ENOXAPARIN 40 MG/0.4 ML SYG SC (08:44)
[2017-06-27] MEDS: MEROPENEM 500MG/50 ML (PMX) 50 ML IVPB (09:29)
[2017-06-27 12:09] LABS: ADD MAN DIFF? NO
[2017-06-27 12:27] LABS: BASOPHILS % 0.5 % (0.0-2.0); EOSINOPHILS # 0.1 10^3/ul (0.0-0.5); EOSINOPHILS % 1.3 % (0.0-7.0); HEMATOCRIT 25.4 % (37.0-47.0); HEMOGLOBIN 8.4 g/dl (12.0-16.0); LYMPHOCYTES # 0.7 10^3/ul (0.8-2.9); LYMPHOCYTES % 8.8 % (15.0-51.0); MEAN CORPUSCULAR HEMOGLOBIN 20.6 pg (29.0-33.0); MEAN CORPUSCULAR HGB CONC 33.1 g/dl (32.0-37.0); MEAN CORPUSCULAR VOLUME 62.3 fl (82.0-101.0); MONOCYTE # 0.5 10^3/ul (0.3-0.9); MONOCYTES % 5.7 % (0.0-11.0); NEUTROPHIL # 6.9 10^3/ul (1.6-7.5); PLATELET COUNT 473 10^3/UL (140-415); RED BLOOD COUNT 4.08 10^6/ul (4.20-5.40)
[2017-06-27 12:27] LABS: WHITE BLOOD COUNT 8.3 10^3/ul (4.8-10.8)
[2017-06-27 12:36] LABS: ANION GAP 9 (8-16); BLOOD UREA NITROGEN 9 mg/dl (7-20); CARBON DIOXIDE 34 mmol/L (21-31); CHLORIDE 97 mmol/L (97-110); CREATININE 1.11 mg/dl (0.44-1.00); GLUCOSE 119 mg/dl (70-220); POTASSIUM 4.5 mmol/L (3.5-5.1); SODIUM 135 mmol/L (135-144)
[2017-06-27] MEDS: MICONAZOLE 2% 30 GM CR TOP ×2 (15:00→20:16)
[2017-06-27] MEDS: MICONAZOLE 2% 45 GM VAG CR VAG (15:56)
[2017-06-27] MEDS: NYSTATIN 30 GM POWDER BTL TOP ×2 (15:58→23:38)
[2017-06-27] MEDS: MICONAZOLE 200 MG VAG SUPP VAG (20:13)
[2017-06-28] MEDS: PANTOPRAZOLE 40 MG INJ IV (05:30)
[2017-06-28] MEDS: HYDROmorphONE 0.5 MG/0.5 ML SYG IV ×5 (05:31→20:47)
[2017-06-28] MEDS: DEXTROSE 5%-0.45% NACL 1,000 ML IV ×3 (06:24→21:10)
[2017-06-28 06:36] LABS: ANION GAP 9 (8-16); BLOOD UREA NITROGEN 9 mg/dl (7-20); CALCIUM 8.3 mg/dl (8.4-10.2); CARBON DIOXIDE 33 mmol/L (21-31); CHLORIDE 97 mmol/L (97-110); CREATININE 1.03 mg/dl (0.44-1.00); GLUCOSE 119 mg/dl (70-220); POTASSIUM 4.1 mmol/L (3.5-5.1); SODIUM 135 mmol/L (135-144)
[2017-06-28] MEDS: NIFEdipine (XL) 30 MG TAB PO (09:53)
[2017-06-28] MEDS: METOPROLOL 25 MG TAB PO ×2 (09:53→21:00)
[2017-06-28] MEDS: AMIODARONE 200 MG TAB PO ×2 (09:53→21:00)
[2017-06-28] MEDS: MICONAZOLE 2% 30 GM CR TOP ×2 (09:54→21:04)
[2017-06-28] MEDS: NYSTATIN 30 GM POWDER BTL TOP ×2 (09:54→20:47)
[2017-06-28] MEDS: ENOXAPARIN 40 MG/0.4 ML SYG SC (10:16)
[2017-06-28] MEDS: MICONAZOLE 200 MG VAG SUPP VAG (20:47)
[2017-06-29] MEDS: HYDROmorphONE 0.5 MG/0.5 ML SYG IV ×3 (00:28→14:28)
[2017-06-29] MEDS: DEXTROSE 5%-0.45% NACL 1,000 ML IV ×3 (00:29→14:30)
[2017-06-29] MEDS: PANTOPRAZOLE 40 MG INJ IV (05:48)
[2017-06-29] MEDS: METOPROLOL 25 MG TAB PO ×2 (09:22→20:40)
[2017-06-29] MEDS: NIFEdipine (XL) 30 MG TAB PO (09:23)
[2017-06-29] MEDS: AMIODARONE 200 MG TAB PO ×2 (09:25→20:40)
[2017-06-29] MEDS: NYSTATIN 30 GM POWDER BTL TOP ×2 (09:25→20:40)
[2017-06-29] MEDS: ENOXAPARIN 40 MG/0.4 ML SYG SC (09:27)
[2017-06-29 10:17] LABS: ADD MAN DIFF? NO
[2017-06-29 10:21] LABS: BASOPHILS % 0.6 % (0.0-2.0); EOSINOPHILS # 0.2 10^3/ul (0.0-0.5); EOSINOPHILS % 2.3 % (0.0-7.0); HEMATOCRIT 27.1 % (37.0-47.0); HEMOGLOBIN 8.8 g/dl (12.0-16.0); LYMPHOCYTES # 0.7 10^3/ul (0.8-2.9); LYMPHOCYTES % 11.1 % (15.0-51.0); MEAN CORPUSCULAR HEMOGLOBIN 20.4 pg (29.0-33.0); MEAN CORPUSCULAR HGB CONC 32.5 g/dl (32.0-37.0); MEAN CORPUSCULAR VOLUME 62.7 fl (82.0-101.0); MONOCYTE # 0.4 10^3/ul (0.3-0.9); MONOCYTES % 6.8 % (0.0-11.0); NEUTROPHIL # 5.1 10^3/ul (1.6-7.5); NEUTROPHILS % 78.9 % (39.0-77.0); NUCLEATED RED BLOOD CELLS% 0.6 /100WBC (0.0-0.0); PLATELET COUNT 503 10^3/UL (140-415); RED BLOOD COUNT 4.32 10^6/ul (4.20-5.40)
[2017-06-29 10:21] LABS: WHITE BLOOD COUNT 6.5 10^3/ul (4.8-10.8)
[2017-06-29 10:40] LABS: LIPASE 326 U/L (23-300)
[2017-06-29 10:42] LABS: ANION GAP 12 (8-16); BLOOD UREA NITROGEN 11 mg/dl (7-20); CALCIUM 8.4 mg/dl (8.4-10.2); CARBON DIOXIDE 33 mmol/L (21-31); CHLORIDE 97 mmol/L (97-110); CREATININE 1.18 mg/dl (0.44-1.00); GLUCOSE 131 mg/dl (70-220); POTASSIUM 4.3 mmol/L (3.5-5.1); SODIUM 138 mmol/L (135-144)
[2017-06-29] MEDS: MICONAZOLE 2% 45 GM VAG CR VAG ×2 (12:44→20:41)
[2017-06-29] MEDS: HYDROCODONE/APAP (10/325) TAB PO (18:15)
[2017-06-29] MEDS: ACYCLOVIR 200 MG CAP PO (20:39)
[2017-06-29] MEDS: MICONAZOLE 200 MG VAG SUPP VAG (20:41)
[2017-06-30] MEDS: HYDROCODONE/APAP (10/325) TAB PO ×3 (00:06→12:37)
[2017-06-30] MEDS: DEXTROSE 5%-0.45% NACL 1,000 ML IV ×3 (04:06→20:33)
[2017-06-30] MEDS: PANTOPRAZOLE 40 MG INJ IV (05:23)
[2017-06-30 06:04] LABS: ADD MAN DIFF? NO
[2017-06-30 06:10] LABS: BASOPHILS % 0.8 % (0.0-2.0); EOSINOPHILS # 0.1 10^3/ul (0.0-0.5); EOSINOPHILS % 2.3 % (0.0-7.0); HEMATOCRIT 24.3 % (37.0-47.0); HEMOGLOBIN 8.1 g/dl (12.0-16.0); LYMPHOCYTES # 1.1 10^3/ul (0.8-2.9); LYMPHOCYTES % 21.4 % (15.0-51.0); MEAN CORPUSCULAR HEMOGLOBIN 20.7 pg (29.0-33.0); MEAN CORPUSCULAR HGB CONC 33.3 g/dl (32.0-37.0); MEAN CORPUSCULAR VOLUME 62.1 fl (82.0-101.0); MEAN PLATELET VOLUME 8.3 fl (7.4-10.4); MONOCYTE # 0.5 10^3/ul (0.3-0.9); MONOCYTES % 8.9 % (0.0-11.0); NEUTROPHIL # 3.4 10^3/ul (1.6-7.5); NEUTROPHILS % 66.2 % (39.0-77.0); NUCLEATED RED BLOOD CELLS% 0.4 /100WBC (0.0-0.0); PLATELET COUNT 412 10^3/UL (140-415); RED BLOOD COUNT 3.91 10^6/ul (4.20-5.40); RED CELL DISTRIBUTION WIDTH 15.9 % (11.5-14.5)
[2017-06-30 06:10] LABS: WHITE BLOOD COUNT 5.2 10^3/ul (4.8-10.8)
[2017-06-30 06:35] LABS: LIPASE 236 U/L (23-300)
[2017-06-30 06:37] LABS: ANION GAP 10 (8-16); BLOOD UREA NITROGEN 12 mg/dl (7-20); CALCIUM 8.2 mg/dl (8.4-10.2); CARBON DIOXIDE 32 mmol/L (21-31); CHLORIDE 100 mmol/L (97-110); CREATININE 1.23 mg/dl (0.44-1.00); GLUCOSE 105 mg/dl (70-220); POTASSIUM 4.3 mmol/L (3.5-5.1); SODIUM 138 mmol/L (135-144)
[2017-06-30] MEDS: MICONAZOLE 2% 45 GM VAG CR VAG ×2 (08:43→21:36)
[2017-06-30] MEDS: NYSTATIN 30 GM POWDER BTL TOP ×2 (08:43→21:34)
[2017-06-30] MEDS: AMIODARONE 200 MG TAB PO ×2 (08:44→21:00)
[2017-06-30] MEDS: NIFEdipine (XL) 30 MG TAB PO (08:45)
[2017-06-30] MEDS: METOPROLOL 25 MG TAB PO ×2 (08:45→21:00)
[2017-06-30] MEDS: ENOXAPARIN 40 MG/0.4 ML SYG SC (08:49)
[2017-06-30] MEDS: ACYCLOVIR 200 MG CAP PO ×5 (08:56→21:33)
[2017-07-01] MEDS: DEXTROSE 5%-0.45% NACL 1,000 ML IV ×2 (02:30→10:39)
[2017-07-01] MEDS: PANTOPRAZOLE 40 MG INJ IV (05:17)
[2017-07-01] MEDS: HYDROCODONE/APAP (10/325) TAB PO ×2 (05:17→12:30)
[2017-07-01 05:52] LABS: ADD MAN DIFF? NO
[2017-07-01 06:06] LABS: BASOPHILS % 0.8 % (0.0-2.0); EOSINOPHILS # 0.2 10^3/ul (0.0-0.5); EOSINOPHILS % 2.9 % (0.0-7.0); HEMOGLOBIN 8.2 g/dl (12.0-16.0); LYMPHOCYTES # 1.2 10^3/ul (0.8-2.9); LYMPHOCYTES % 22.4 % (15.0-51.0); MEAN CORPUSCULAR HEMOGLOBIN 20.2 pg (29.0-33.0); MEAN CORPUSCULAR HGB CONC 31.5 g/dl (32.0-37.0); MEAN CORPUSCULAR VOLUME 64.2 fl (82.0-101.0); MONOCYTE # 0.4 10^3/ul (0.3-0.9); MONOCYTES % 7.3 % (0.0-11.0); NEUTROPHIL # 3.4 10^3/ul (1.6-7.5); NEUTROPHILS % 66.2 % (39.0-77.0); PLATELET COUNT 475 10^3/UL (140-415); RED BLOOD COUNT 4.05 10^6/ul (4.20-5.40); RED CELL DISTRIBUTION WIDTH 15.8 % (11.5-14.5)
[2017-07-01 06:06] LABS: WHITE BLOOD COUNT 5.2 10^3/ul (4.8-10.8)
[2017-07-01 06:42] LABS: ANION GAP 9 (8-16); BLOOD UREA NITROGEN 14 mg/dl (7-20); CALCIUM 8.5 mg/dl (8.4-10.2); CARBON DIOXIDE 34 mmol/L (21-31); CHLORIDE 100 mmol/L (97-110); CREATININE 1.29 mg/dl (0.44-1.00); GLUCOSE 108 mg/dl (70-220); POTASSIUM 4.5 mmol/L (3.5-5.1); SODIUM 138 mmol/L (135-144)
[2017-07-01] MEDS: METOPROLOL 25 MG TAB PO (08:30)
[2017-07-01] MEDS: ACYCLOVIR 200 MG CAP PO ×3 (08:31→16:15)
[2017-07-01] MEDS: ENOXAPARIN 40 MG/0.4 ML SYG SC (08:31)
[2017-07-01] MEDS: NIFEdipine (XL) 30 MG TAB PO (08:32)
[2017-07-01] MEDS: MICONAZOLE 2% 45 GM VAG CR VAG (08:33)
[2017-07-01] MEDS: NYSTATIN 30 GM POWDER BTL TOP (08:33)
[2017-07-01] MEDS: AMIODARONE 200 MG TAB PO (08:33)
== END 2017-07-01 17:15 | disposition home health service (06) | DRG 689 ==
LOC: MS4 06-06 13:50 → MS2 06-15 12:45 → E/R 10:17 → PP2 15:55 → MS2 06-14 23:01 → PP2 14:19
PROC: 0T768DZ Dilation of Right Ureter with Intraluminal Device, Via Natural or Artificial Opening Endoscopic (ICD-10-PCS; principal; 2017-06-06 07:30)
PROC: 0TP98DZ Removal of Intraluminal Device from Ureter, Via Natural or Artificial Opening Endoscopic (ICD-10-PCS; 2017-06-06 07:30)
PROC: 0F798DZ Dilation of Common Bile Duct with Intraluminal Device, Via Natural or Artificial Opening Endoscopic (ICD-10-PCS; 2017-06-06 07:34)
DX: N13.6 Pyonephrosis (principal); K83.1 Obstruction of bile duct; A41.9 Sepsis, unspecified organism; N17.9 Acute kidney failure, unspecified; J18.9 Pneumonia, unspecified organism; K85.80 Other acute pancreatitis without necrosis or infection; I48.0 Paroxysmal atrial fibrillation; K86.1 Other chronic pancreatitis; E87.1 Hypo-osmolality and hyponatremia; I48.92 Unspecified atrial flutter; Z96.0 Presence of urogenital implants; Z90.722 Acquired absence of ovaries, bilateral; Z90.710 Acquired absence of both cervix and uterus; K57.30 Diverticulosis of large intestine without perforation or abscess without bleeding; K80.20 Calculus of gallbladder without cholecystitis without obstruction; Z86.718 Personal history of other venous thrombosis and embolism; Z85.42 Personal history of malignant neoplasm of other parts of uterus; I12.9 Hypertensive chronic kidney disease with stage 1 through stage 4 chronic kidney disease, or unspecified chronic kidney disease; N18.9 Chronic kidney disease, unspecified; E87.5 Hyperkalemia; Z92.21 Personal history of antineoplastic chemotherapy; Z92.3 Personal history of irradiation; B95.2 Enterococcus as the cause of diseases classified elsewhere; I08.1 Rheumatic disorders of both mitral and tricuspid valves; I25.10 Atherosclerotic heart disease of native coronary artery without angina pectoris; B96.20 Unspecified Escherichia coli [E. coli] as the cause of diseases classified elsewhere; Z16.12 Extended spectrum beta lactamase (ESBL) resistance; B37.3 Candidiasis of vulva and vagina
CPT/HCPCS: 36415; 71045; 71250; 74018; 74176; 74181; 74330; 74430; 76536; 76775; 80048; 80053; 81001; 82105; 82150; 83690; 83735; 84443; 84484; 85025; 85610; 85730; 86301; 86692; 87040; 87075; 87086; 88104; 88305; 93005; 93306; 93971; 94640; 96374; 96375; 97163; 99217; 99285-25; G0378

== ENCOUNTER 2017-07-20 21:11 | Inpatient (IN) | payer MEDICARE, OTHER ==
[2017-07-20] MEDS ORDERED: KETOROLAC 60 MG INJ IM (23:18)
[2017-07-20 23:44] LABS: ADD MAN DIFF? NO
[2017-07-20 23:49] LABS: BASOPHILS % 0.6 % (0.0-2.0); EOSINOPHILS # 0.3 10^3/ul (0.0-0.5); EOSINOPHILS % 3.7 % (0.0-7.0); HEMOGLOBIN 9.6 g/dl (12.0-16.0); LYMPHOCYTES % 27.8 % (15.0-51.0); MEAN CORPUSCULAR HEMOGLOBIN 20.3 pg (29.0-33.0); MEAN CORPUSCULAR VOLUME 65.5 fl (82.0-101.0); MEAN PLATELET VOLUME 8.7 fl (7.4-10.4); MONOCYTE # 0.7 10^3/ul (0.3-0.9); MONOCYTES % 9.5 % (0.0-11.0); NEUTROPHIL # 4.2 10^3/ul (1.6-7.5); NEUTROPHILS % 58.1 % (39.0-77.0); PLATELET COUNT 360 10^3/UL (140-415); RED BLOOD COUNT 4.73 10^6/ul (4.20-5.40); RED CELL DISTRIBUTION WIDTH 17.7 % (11.5-14.5)
[2017-07-20 23:49] LABS: WHITE BLOOD COUNT 7.2 10^3/ul (4.8-10.8)
[2017-07-21 00:30] LABS: INR 0.84; PROTIME 11.6 Sec (11.9-14.9); PT RATIO 0.9
[2017-07-21 00:31] LABS: PARTIAL THROMBOPLASTIN TIME 26.1 Sec (25.0-35.0)
[2017-07-21 00:42] LABS: ALANINE AMINOTRANSFERASE 26 IU/L (13-69); ALBUMIN 3.9 g/dl (3.3-4.9); ALKALINE PHOSPHATASE 110 IU/L (42-121); ANION GAP 15 (8-16); ASPARTATE AMINO TRANSFERASE 26 IU/L (15-46); BILIRUBIN,INDIRECT 0.2 mg/dl (0-1.1); BILIRUBIN,TOTAL 0.2 mg/dl (0.2-1.3); BLOOD UREA NITROGEN 33 mg/dl (7-20); CALCIUM 9.4 mg/dl (8.4-10.2); CARBON DIOXIDE 29 mmol/L (21-31); CHLORIDE 103 mmol/L (97-110); CREATININE 1.55 mg/dl (0.44-1.00); GLUCOSE 102 mg/dl (70-220); LIPASE 193 U/L (23-300); POTASSIUM 4.8 mmol/L (3.5-5.1); SODIUM 142 mmol/L (135-144); TOTAL PROTEIN 8.2 g/dl (6.1-8.1)
[2017-07-21] MEDS: ENOXAPARIN 80 MG/0.8 ML SYG SC ×2 (01:36→23:17)
[2017-07-21] MEDS ORDERED: ONDANSETRON 4 MG INJ IV (04:30)
[2017-07-21 05:13] LABS: ADD MAN DIFF? NO
[2017-07-21 05:22] LABS: BASOPHILS % 0.4 % (0.0-2.0); EOSINOPHILS # 0.3 10^3/ul (0.0-0.5); EOSINOPHILS % 4.4 % (0.0-7.0); HEMATOCRIT 28.5 % (37.0-47.0); HEMOGLOBIN 8.9 g/dl (12.0-16.0); LYMPHOCYTES # 2.2 10^3/ul (0.8-2.9); LYMPHOCYTES % 31.9 % (15.0-51.0); MEAN CORPUSCULAR HEMOGLOBIN 20.4 pg (29.0-33.0); MEAN CORPUSCULAR HGB CONC 31.2 g/dl (32.0-37.0); MEAN CORPUSCULAR VOLUME 65.2 fl (82.0-101.0); MEAN PLATELET VOLUME 8.7 fl (7.4-10.4); MONOCYTE # 0.7 10^3/ul (0.3-0.9); MONOCYTES % 9.3 % (0.0-11.0); NEUTROPHIL # 3.8 10^3/ul (1.6-7.5); NEUTROPHILS % 53.7 % (39.0-77.0); PLATELET COUNT 340 10^3/UL (140-415); RED BLOOD COUNT 4.37 10^6/ul (4.20-5.40); RED CELL DISTRIBUTION WIDTH 17.4 % (11.5-14.5)
[2017-07-21 05:50] LABS: ANION GAP 15 (8-16); BLOOD UREA NITROGEN 29 mg/dl (7-20); CALCIUM 8.9 mg/dl (8.4-10.2); CARBON DIOXIDE 27 mmol/L (21-31); CHLORIDE 106 mmol/L (97-110); CREATININE 1.48 mg/dl (0.44-1.00); GLUCOSE 92 mg/dl (70-220); POTASSIUM 4.3 mmol/L (3.5-5.1); SODIUM 144 mmol/L (135-144)
[2017-07-21] MEDS: AMIODARONE 200 MG TAB PO ×2 (08:41→21:04)
[2017-07-21] MEDS: METOPROLOL 25 MG TAB PO ×2 (08:42→21:05)
[2017-07-21] MEDS ORDERED: ENOXAPARIN 80 MG/0.8 ML SYG SC ×2 (09:00→21:00)
[2017-07-21] MEDS: SOD CHLORIDE 0.45% 1,000 ML IV (14:54)
[2017-07-21] MEDS: VANCOMYCIN HCL 250 MG/5ML POSYG PO (18:27)
[2017-07-21] MEDS: metroNIDAZOLE 500 MG/NS (PMX) 100 ML IVPB (23:16)
[2017-07-22] MEDS: SOD CHLORIDE 0.45% 1,000 ML IV ×3 (04:23→23:04)
[2017-07-22 05:43] LABS: ADD MAN DIFF? NO
[2017-07-22 05:47] LABS: BASOPHILS % 0.7 % (0.0-2.0); EOSINOPHILS # 0.4 10^3/ul (0.0-0.5); EOSINOPHILS % 6.4 % (0.0-7.0); HEMATOCRIT 28.3 % (37.0-47.0); HEMOGLOBIN 8.8 g/dl (12.0-16.0); LYMPHOCYTES # 1.9 10^3/ul (0.8-2.9); LYMPHOCYTES % 33.3 % (15.0-51.0); MEAN CORPUSCULAR HEMOGLOBIN 20.3 pg (29.0-33.0); MEAN CORPUSCULAR HGB CONC 31.1 g/dl (32.0-37.0); MEAN CORPUSCULAR VOLUME 65.4 fl (82.0-101.0); MEAN PLATELET VOLUME 8.6 fl (7.4-10.4); MONOCYTE # 0.5 10^3/ul (0.3-0.9); MONOCYTES % 8.8 % (0.0-11.0); NEUTROPHIL # 2.9 10^3/ul (1.6-7.5); NEUTROPHILS % 50.5 % (39.0-77.0); PLATELET COUNT 317 10^3/UL (140-415); RED BLOOD COUNT 4.33 10^6/ul (4.20-5.40); RED CELL DISTRIBUTION WIDTH 17.9 % (11.5-14.5)
[2017-07-22 05:47] LABS: WHITE BLOOD COUNT 5.8 10^3/ul (4.8-10.8)
[2017-07-22] MEDS: metroNIDAZOLE 500 MG/NS (PMX) 100 ML IVPB ×4 (06:03→23:08)
[2017-07-22 06:36] LABS: ANION GAP 14 (8-16); BLOOD UREA NITROGEN 25 mg/dl (7-20); CALCIUM 8.7 mg/dl (8.4-10.2); CARBON DIOXIDE 28 mmol/L (21-31); CHLORIDE 106 mmol/L (97-110); CREATININE 1.53 mg/dl (0.44-1.00); GLUCOSE 100 mg/dl (70-220); POTASSIUM 4.6 mmol/L (3.5-5.1); SODIUM 143 mmol/L (135-144)
[2017-07-22] MEDS: METOPROLOL 25 MG TAB PO ×2 (08:51→20:22)
[2017-07-22] MEDS: AMIODARONE 200 MG TAB PO ×2 (08:52→20:23)
[2017-07-22 19:48] LABS: TROPONIN-I < 0.012 ng/ml (0.00-0.12)
[2017-07-22] MEDS: ENOXAPARIN 80 MG/0.8 ML SYG SC (23:06)
[2017-07-23 01:51] LABS: TROPONIN-I < 0.012 ng/ml (0.00-0.12)
[2017-07-23] MEDS: metroNIDAZOLE 500 MG/NS (PMX) 100 ML IVPB ×4 (05:07→23:11)
[2017-07-23 05:36] LABS: ADD MAN DIFF? NO
[2017-07-23 05:45] LABS: BASOPHILS % 0.6 % (0.0-2.0); EOSINOPHILS # 0.3 10^3/ul (0.0-0.5); EOSINOPHILS % 3.9 % (0.0-7.0); HEMATOCRIT 31.1 % (37.0-47.0); HEMOGLOBIN 9.7 g/dl (12.0-16.0); LYMPHOCYTES % 28.3 % (15.0-51.0); MEAN CORPUSCULAR HEMOGLOBIN 20.4 pg (29.0-33.0); MEAN CORPUSCULAR HGB CONC 31.2 g/dl (32.0-37.0); MEAN CORPUSCULAR VOLUME 65.5 fl (82.0-101.0); MEAN PLATELET VOLUME 8.8 fl (7.4-10.4); MONOCYTE # 0.6 10^3/ul (0.3-0.9); MONOCYTES % 8.6 % (0.0-11.0); NEUTROPHIL # 4.2 10^3/ul (1.6-7.5); NEUTROPHILS % 58.2 % (39.0-77.0); PLATELET COUNT 367 10^3/UL (140-415); RED BLOOD COUNT 4.75 10^6/ul (4.20-5.40); RED CELL DISTRIBUTION WIDTH 17.8 % (11.5-14.5)
[2017-07-23 05:45] LABS: WHITE BLOOD COUNT 7.2 10^3/ul (4.8-10.8)
[2017-07-23 06:00] LABS: CHOL/HDL RATIO 4.2 RATIO; HDL CHOLESTEROL 35 mg/dl (33-92); LDL CHOLESTEROL,CALCULATED 87 mg/dl; TRIGLYCERIDES 137 mg/dl (0-149)
[2017-07-23 06:00] LABS: CHOLESTEROL 149 mg/dl (100-200)
[2017-07-23 07:02] LABS: ANION GAP 17 (8-16); BLOOD UREA NITROGEN 24 mg/dl (7-20); CALCIUM 8.8 mg/dl (8.4-10.2); CARBON DIOXIDE 27 mmol/L (21-31); CHLORIDE 105 mmol/L (97-110); CREATININE 1.49 mg/dl (0.44-1.00); GLUCOSE 94 mg/dl (70-220); POTASSIUM 4.6 mmol/L (3.5-5.1); SODIUM 144 mmol/L (135-144)
[2017-07-23 07:22] LABS: SODIUM,URINE RANDOM 124 mmol/L (30-90)
[2017-07-23 07:24] LABS: PROTEIN/CREAT RATIO 0.36 RATIO
[2017-07-23] MEDS: SOD CHLORIDE 0.45% 1,000 ML IV ×2 (08:54→23:11)
[2017-07-23] MEDS: METOPROLOL 25 MG TAB PO ×2 (09:34→21:00)
[2017-07-23] MEDS: AMIODARONE 200 MG TAB PO ×2 (09:34→21:02)
[2017-07-23] MEDS: REGADENOSON 0.4 MG/5 ML SYG (11:55)
[2017-07-23] MEDS: morphine 2 MG INJ IV (13:35)
[2017-07-23] MEDS: ENOXAPARIN 80 MG/0.8 ML SYG SC (23:23)
[2017-07-24] MEDS: metroNIDAZOLE 500 MG/NS (PMX) 100 ML IVPB ×2 (06:13→11:47)
[2017-07-24] MEDS: METOPROLOL 25 MG TAB PO (08:43)
[2017-07-24] MEDS: AMIODARONE 200 MG TAB PO (08:44)
[2017-07-24 11:19] LABS: ADD MAN DIFF? NO
[2017-07-24 11:21] LABS: WHITE BLOOD COUNT 5.7 10^3/ul (4.8-10.8)
[2017-07-24 11:21] LABS: BASOPHILS % 0.5 % (0.0-2.0); EOSINOPHILS # 0.2 10^3/ul (0.0-0.5); EOSINOPHILS % 2.6 % (0.0-7.0); HEMATOCRIT 28.9 % (37.0-47.0); HEMOGLOBIN 9.1 g/dl (12.0-16.0); LYMPHOCYTES # 1.7 10^3/ul (0.8-2.9); LYMPHOCYTES % 29.2 % (15.0-51.0); MEAN CORPUSCULAR HEMOGLOBIN 20.6 pg (29.0-33.0); MEAN CORPUSCULAR HGB CONC 31.5 g/dl (32.0-37.0); MEAN CORPUSCULAR VOLUME 65.4 fl (82.0-101.0); MEAN PLATELET VOLUME 8.7 fl (7.4-10.4); MONOCYTE # 0.5 10^3/ul (0.3-0.9); MONOCYTES % 8.6 % (0.0-11.0); NEUTROPHIL # 3.4 10^3/ul (1.6-7.5); NEUTROPHILS % 58.8 % (39.0-77.0); PLATELET COUNT 339 10^3/UL (140-415); RED BLOOD COUNT 4.42 10^6/ul (4.20-5.40)
[2017-07-24 12:01] LABS: ANION GAP 13 (8-16); BLOOD UREA NITROGEN 20 mg/dl (7-20); CALCIUM 8.5 mg/dl (8.4-10.2); CARBON DIOXIDE 28 mmol/L (21-31); CHLORIDE 104 mmol/L (97-110); CREATININE 1.48 mg/dl (0.44-1.00); GLUCOSE 129 mg/dl (70-220); POTASSIUM 4.4 mmol/L (3.5-5.1); SODIUM 141 mmol/L (135-144)
[2017-07-24] MEDS: SOD CHLORIDE 0.45% 1,000 ML IV (13:30)
== END 2017-07-24 18:00 | disposition home or self-care (01) | DRG 300 ==
LOC: E/R 21:11 → MS1 07-21 01:14
DX: I82.411 Acute embolism and thrombosis of right femoral vein (principal); N17.9 Acute kidney failure, unspecified; K80.10 Calculus of gallbladder with chronic cholecystitis without obstruction; N13.30 Unspecified hydronephrosis; R19.7 Diarrhea, unspecified; I10 Essential (primary) hypertension; Z98.0 Intestinal bypass and anastomosis status; I48.0 Paroxysmal atrial fibrillation; D64.9 Anemia, unspecified; Z92.21 Personal history of antineoplastic chemotherapy; Z92.3 Personal history of irradiation; Z79.01 Long term (current) use of anticoagulants; Z90.710 Acquired absence of both cervix and uterus; Z90.79 Acquired absence of other genital organ(s); Z90.722 Acquired absence of ovaries, bilateral; Z85.42 Personal history of malignant neoplasm of other parts of uterus
CPT/HCPCS: 36415; 78452; 80048; 80053; 80061; 81003; 82570; 83690; 84300; 84484; 85025; 85610; 85730; 87081; 89190; 93005; 93017; 93971; 93976; 96372; 99285-25

== ENCOUNTER 2017-09-22 12:28 | Inpatient (IN) | payer MEDICARE, OTHER ==
[2017-09-22 13:17] LABS: ADD MAN DIFF? NO
[2017-09-22 13:20] LABS: WHITE BLOOD COUNT 10.4 10^3/ul (4.8-10.8)
[2017-09-22 13:20] LABS: HEMATOCRIT 35.4 % (37.0-47.0); HEMOGLOBIN 10.8 g/dl (12.0-16.0); MEAN CORPUSCULAR HEMOGLOBIN 20.7 pg (29.0-33.0); MEAN CORPUSCULAR VOLUME 67.7 fl (82.0-101.0); RED BLOOD COUNT 5.23 10^6/ul (4.20-5.40)
[2017-09-22 13:21] LABS: BASOPHIL # 0.1 10^3/ul (0.0-0.1); BASOPHILS % 0.5 % (0.0-2.0); EOSINOPHILS # 0.1 10^3/ul (0.0-0.5); EOSINOPHILS % 0.7 % (0.0-7.0); LYMPHOCYTES # 2.2 10^3/ul (0.8-2.9); LYMPHOCYTES % 21.5 % (15.0-51.0); MEAN CORPUSCULAR HGB CONC 30.5 g/dl (32.0-37.0); MEAN PLATELET VOLUME 8.2 fl (7.4-10.4); MONOCYTE # 0.4 10^3/ul (0.3-0.9); MONOCYTES % 3.9 % (0.0-11.0); NEUTROPHIL # 7.6 10^3/ul (1.6-7.5); NEUTROPHILS % 72.8 % (39.0-77.0); PLATELET COUNT 451 10^3/UL (140-415); RED CELL DISTRIBUTION WIDTH 16.6 % (11.5-14.5)
[2017-09-22] MEDS: ASPIRIN 325 MG TAB PO (13:29)
[2017-09-22] MEDS: ONDANSETRON 4 MG INJ IV ×2 (13:29→14:42)
[2017-09-22] MEDS: NITROGLYCERIN 2% 1 GM OINT PKT TD (13:30)
[2017-09-22 13:40] LABS: INR 1.04; PROTIME 13.7 Sec (11.9-14.9); PT RATIO 1.1
[2017-09-22 13:41] LABS: PARTIAL THROMBOPLASTIN TIME 26.9 Sec (25.0-35.0)
[2017-09-22 13:42] LABS: ALANINE AMINOTRANSFERASE 29 IU/L (13-69); ALBUMIN 4.1 g/dl (3.3-4.9); ALBUMIN/GLOBULIN RATIO 1.02; ALKALINE PHOSPHATASE 71 IU/L (42-121); ANION GAP 14 (8-16); ASPARTATE AMINO TRANSFERASE 31 IU/L (15-46); BILIRUBIN,INDIRECT 0.2 mg/dl (0-1.1); BILIRUBIN,TOTAL 0.2 mg/dl (0.2-1.3); BLOOD UREA NITROGEN 48 mg/dl (7-20); CALCIUM 9.4 mg/dl (8.4-10.2); CARBON DIOXIDE 27 mmol/L (21-31); CHLORIDE 107 mmol/L (97-110); CREATININE 1.93 mg/dl (0.44-1.00); GLUCOSE 138 mg/dl (70-220); LIPASE 132 U/L (23-300); POTASSIUM 5.2 mmol/L (3.5-5.1); SODIUM 143 mmol/L (135-144); TOTAL PROTEIN 8.1 g/dl (6.1-8.1)
[2017-09-22] MEDS: SOD CHLORIDE 0.9% 1,000 ML IV (14:00)
[2017-09-22 14:09] LABS: B-TYPE NATRIURETIC PEPTIDE 106 PG/ML (0-125); TROPONIN-I < 0.012 ng/ml (0.00-0.12)
[2017-09-22] MEDS: morphine 2 MG INJ IV (14:42)
[2017-09-22] MEDS ORDERED: NITROGLYCERIN (SL) 0.4 MG TAB SL (17:00)
[2017-09-22] MEDS ORDERED: NACL 0.9% 3 ML SYG IV (17:00)
[2017-09-22] MEDS ORDERED: ONDANSETRON 4 MG INJ IV (17:00)
[2017-09-22] MEDS: HYDROCODONE/APAP (5/325) TAB PO (17:33)
[2017-09-22 20:18] LABS: CREATINE KINASE 41 IU/L (23-200)
[2017-09-22 20:29] LABS: CK INDEX 2.3; CK-MB 0.93 ng/ml (0.0-2.4)
[2017-09-22 20:30] LABS: TROPONIN-I < 0.012 ng/ml (0.00-0.12)
[2017-09-22] MEDS: AMIODARONE 200 MG TAB PO (20:49)
[2017-09-22] MEDS: FAMOTIDINE 20 MG TAB PO (20:49)
[2017-09-22] MEDS: METOPROLOL 25 MG TAB PO (20:49)
[2017-09-22] MEDS: HEPARIN 5,000 UNIT/0.5 ML VIAL SC (20:53)
[2017-09-23 01:58] LABS: CREATINE KINASE 35 IU/L (23-200)
[2017-09-23 02:12] LABS: TROPONIN-I < 0.012 ng/ml (0.00-0.12)
[2017-09-23] MEDS: HYDROCODONE/APAP (5/325) TAB PO ×2 (02:31→15:47)
[2017-09-23 05:06] LABS: ADD MAN DIFF? NO
[2017-09-23 05:13] LABS: BASOPHILS % 0.3 % (0.0-2.0); EOSINOPHILS # 0.1 10^3/ul (0.0-0.5); EOSINOPHILS % 0.4 % (0.0-7.0); HEMATOCRIT 30.5 % (37.0-47.0); HEMOGLOBIN 9.1 g/dl (12.0-16.0); LYMPHOCYTES # 2.1 10^3/ul (0.8-2.9); LYMPHOCYTES % 17.3 % (15.0-51.0); MEAN CORPUSCULAR HGB CONC 29.8 g/dl (32.0-37.0); MEAN PLATELET VOLUME 8.5 fl (7.4-10.4); MONOCYTES % 8.2 % (0.0-11.0); NEUTROPHIL # 8.7 10^3/ul (1.6-7.5); NEUTROPHILS % 73.3 % (39.0-77.0); PLATELET COUNT 374 10^3/UL (140-415); RED BLOOD COUNT 4.55 10^6/ul (4.20-5.40); RED CELL DISTRIBUTION WIDTH 16.7 % (11.5-14.5)
[2017-09-23 05:13] LABS: WHITE BLOOD COUNT 11.9 10^3/ul (4.8-10.8)
[2017-09-23 05:28] LABS: ALANINE AMINOTRANSFERASE 24 IU/L (13-69); ALBUMIN 3.2 g/dl (3.3-4.9); ALBUMIN/GLOBULIN RATIO 0.91; ALKALINE PHOSPHATASE 60 IU/L (42-121); ANION GAP 10 (8-16); ASPARTATE AMINO TRANSFERASE 19 IU/L (15-46); BILIRUBIN,INDIRECT 0.7 mg/dl (0-1.1); BILIRUBIN,TOTAL 0.7 mg/dl (0.2-1.3); BLOOD UREA NITROGEN 43 mg/dl (7-20); CALCIUM 8.9 mg/dl (8.4-10.2); CARBON DIOXIDE 28 mmol/L (21-31); CHLORIDE 108 mmol/L (97-110); GLUCOSE 103 mg/dl (70-220); POTASSIUM 4.6 mmol/L (3.5-5.1); SODIUM 141 mmol/L (135-144); TOTAL PROTEIN 6.7 g/dl (6.1-8.1)
[2017-09-23] MEDS: METOPROLOL 25 MG TAB PO ×2 (08:41→21:00)
[2017-09-23] MEDS: AMIODARONE 200 MG TAB PO (08:42)
[2017-09-23] MEDS: HEPARIN 5,000 UNIT/0.5 ML VIAL SC ×2 (08:46→21:11)
[2017-09-23] MEDS: ACETAMINOPHEN 325 MG TAB PO (12:14)
[2017-09-23] MEDS: METOCLOPRAMIDE 10 MG INJ IV (18:11)
[2017-09-23] MEDS: FAMOTIDINE 20 MG TAB PO (21:04)
[2017-09-24 06:42] LABS: ADD MAN DIFF? NO
[2017-09-24 06:48] LABS: WHITE BLOOD COUNT 10.5 10^3/ul (4.8-10.8)
[2017-09-24 06:48] LABS: BASOPHIL # 0.1 10^3/ul (0.0-0.1); BASOPHILS % 0.6 % (0.0-2.0); EOSINOPHILS # 0.1 10^3/ul (0.0-0.5); EOSINOPHILS % 1.2 % (0.0-7.0); HEMATOCRIT 33.9 % (37.0-47.0); HEMOGLOBIN 10.3 g/dl (12.0-16.0); LYMPHOCYTES % 28.2 % (15.0-51.0); MEAN CORPUSCULAR HEMOGLOBIN 20.3 pg (29.0-33.0); MEAN CORPUSCULAR HGB CONC 30.4 g/dl (32.0-37.0); MEAN CORPUSCULAR VOLUME 66.7 fl (82.0-101.0); MEAN PLATELET VOLUME 8.6 fl (7.4-10.4); MONOCYTE # 0.7 10^3/ul (0.3-0.9); MONOCYTES % 6.9 % (0.0-11.0); NEUTROPHIL # 6.6 10^3/ul (1.6-7.5); NEUTROPHILS % 62.7 % (39.0-77.0); PLATELET COUNT 419 10^3/UL (140-415); RED BLOOD COUNT 5.08 10^6/ul (4.20-5.40); RED CELL DISTRIBUTION WIDTH 16.2 % (11.5-14.5)
[2017-09-24 07:12] LABS: CHOLESTEROL 164 mg/dl (100-200)
[2017-09-24 07:12] LABS: HDL CHOLESTEROL 41 mg/dl (33-92); LDL CHOLESTEROL,CALCULATED 80 mg/dl; TRIGLYCERIDES 213 mg/dl (0-149)
[2017-09-24 07:25] LABS: TROPONIN-I < 0.012 ng/ml (0.000-0.120)
[2017-09-24 07:27] LABS: ANION GAP 13 (8-16); BLOOD UREA NITROGEN 31 mg/dl (7-20); CALCIUM 9.2 mg/dl (8.4-10.2); CARBON DIOXIDE 30 mmol/L (21-31); CHLORIDE 103 mmol/L (97-110); CREATININE 1.65 mg/dl (0.44-1.00); GLUCOSE 114 mg/dl (70-220); POTASSIUM 4.5 mmol/L (3.5-5.1); SODIUM 141 mmol/L (135-144)
[2017-09-24] MEDS: METOPROLOL 25 MG TAB PO ×2 (07:35→21:03)
[2017-09-24] MEDS: AMIODARONE 200 MG TAB PO (08:35)
[2017-09-24] MEDS: HEPARIN 5,000 UNIT/0.5 ML VIAL SC ×2 (08:39→21:04)
[2017-09-24] MEDS: FAMOTIDINE 20 MG TAB PO (21:03)
[2017-09-25] MEDS: SODIUM CHLORIDE 0.9% 1L BAG IV
[2017-09-25] MEDS: morphine 2 MG INJ IV (04:43)
[2017-09-25] MEDS: HYDROCODONE/APAP (5/325) TAB PO (06:09)
[2017-09-25] MEDS ORDERED: BUPIVACAINE 0.25%/EPI (MDV) 50 ML VIAL INJ (07:00)
[2017-09-25 08:47] LABS: ADD MAN DIFF? NO
[2017-09-25 08:53] LABS: WHITE BLOOD COUNT 11.8 10^3/ul (4.8-10.8)
[2017-09-25 08:53] LABS: BASOPHIL # 0.1 10^3/ul (0.0-0.1); BASOPHILS % 0.4 % (0.0-2.0); EOSINOPHILS # 0.1 10^3/ul (0.0-0.5); EOSINOPHILS % 1.2 % (0.0-7.0); HEMATOCRIT 34.1 % (37.0-47.0); LYMPHOCYTES # 2.6 10^3/ul (0.8-2.9); LYMPHOCYTES % 22.3 % (15.0-51.0); MEAN CORPUSCULAR HEMOGLOBIN 19.8 pg (29.0-33.0); MEAN CORPUSCULAR HGB CONC 29.3 g/dl (32.0-37.0); MEAN CORPUSCULAR VOLUME 67.7 fl (82.0-101.0); MEAN PLATELET VOLUME 8.4 fl (7.4-10.4); MONOCYTE # 0.8 10^3/ul (0.3-0.9); MONOCYTES % 6.9 % (0.0-11.0); NEUTROPHIL # 8.1 10^3/ul (1.6-7.5); NEUTROPHILS % 68.9 % (39.0-77.0); PLATELET COUNT 373 10^3/UL (140-415); RED BLOOD COUNT 5.04 10^6/ul (4.20-5.40); RED CELL DISTRIBUTION WIDTH 16.4 % (11.5-14.5)
[2017-09-25] MEDS: AMIODARONE 200 MG TAB PO (09:00)
[2017-09-25] MEDS: HEPARIN 5,000 UNIT/0.5 ML VIAL SC ×2 (09:00→20:45)
[2017-09-25] MEDS: METOPROLOL 25 MG TAB PO ×2 (09:00→20:43)
[2017-09-25 09:18] LABS: PROTIME 12.2 Sec (11.9-14.9)
[2017-09-25 09:19] LABS: PARTIAL THROMBOPLASTIN TIME 26.9 Sec (25.0-35.0)
[2017-09-25 09:23] LABS: ANION GAP 14 (8-16); BLOOD UREA NITROGEN 31 mg/dl (7-20); CALCIUM 9.3 mg/dl (8.4-10.2); CARBON DIOXIDE 32 mmol/L (21-31); CHLORIDE 103 mmol/L (97-110); CREATININE 1.66 mg/dl (0.44-1.00); GLUCOSE 130 mg/dl (70-220); POTASSIUM 4.8 mmol/L (3.5-5.1); SODIUM 144 mmol/L (135-144)
[2017-09-25] MEDS ORDERED: morphine LIQ (10 MG/5 ML) CUP PO (14:00)
[2017-09-25] MEDS ORDERED: LIDOCAINE 1% (MPF) 30 ML INJ (14:14)
[2017-09-25] MEDS ORDERED: PROPOFOL 20 ML (14:34)
[2017-09-25] MEDS ORDERED: ROCURONIUM 50 MG INJ ×2 (14:34→15:48)
[2017-09-25] MEDS ORDERED: ONDANSETRON 4 MG INJ (14:34)
[2017-09-25] MEDS ORDERED: MIDAZOLAM 1 MG/ML 2 ML INJ (14:34)
[2017-09-25] MEDS ORDERED: ROPIVACAINE 0.5 % 30 ML VIAL (14:34)
[2017-09-25] MEDS ORDERED: METOCLOPRAMIDE 10 MG INJ (14:34)
[2017-09-25] MEDS ORDERED: PHENYLephrine (100 MCG/ML) 5ML SYG (14:56)
[2017-09-25] MEDS ORDERED: CEFAZOLIN 1 GM INJ (15:11)
[2017-09-25] MEDS ORDERED: SUGAMMADEX SODIUM 200 MG/2 ML VIAL IV (16:21)
[2017-09-25] MEDS ORDERED: MEPERIDINE 25 MG INJ IV (16:30)
[2017-09-25] MEDS ORDERED: FENTAnyl 50 MCG/ML VIAL IV ×2 (16:30)
[2017-09-25] MEDS ORDERED: LABETALOL HCL 20MG INJ IV (16:30)
[2017-09-25] MEDS ORDERED: HYDROmorphONE (0.2 MG/ML) 10ML SYG IV ×2 (16:30→17:28)
[2017-09-25] MEDS ORDERED: hydrALAzine 20 MG INJ IV (16:30)
[2017-09-25] MEDS ORDERED: ONDANSETRON 4 MG INJ IV (16:30)
[2017-09-25] MEDS ORDERED: FENTAnyl 50 MCG/ML VIAL (16:38)
[2017-09-25] MEDS ORDERED: NALOXONE (0.4 MG/ML) INJ IV (17:30)
[2017-09-25] MEDS: HYDROmorphONE (0.2 MG/ML) 10ML SYG IV (17:53)
[2017-09-25] MEDS: HYDROmorphONE 0.2 MG/ML PCA IV (18:10)
[2017-09-25] MEDS: LEVOFLOXACIN 500MG/D5W (PMX) 100 ML IVPB (21:10)
[2017-09-25] MEDS: FAMOTIDINE 20 MG TAB PO (21:13)
[2017-09-26] MEDS: SOD CHLORIDE 0.9% 1,000 ML IV ×4 (05:30→15:03)
[2017-09-26 07:11] LABS: ABNORMAL IP MESSAGE 1; HEMATOCRIT 31.8 % (37.0-47.0); HEMOGLOBIN 9.4 g/dl (12.0-16.0); MEAN CORPUSCULAR HEMOGLOBIN 20.1 pg (29.0-33.0); MEAN CORPUSCULAR HGB CONC 29.6 g/dl (32.0-37.0); MEAN CORPUSCULAR VOLUME 68.1 fl (82.0-101.0); MEAN PLATELET VOLUME 8.9 fl (7.4-10.4); NUCLEATED RED BLOOD CELLS% 3.6 /100WBC (0.0-0.0); PLATELET COUNT 344 10^3/UL (140-415); RED BLOOD COUNT 4.67 10^6/ul (4.20-5.40); RED CELL DISTRIBUTION WIDTH 16.2 % (11.5-14.5)
[2017-09-26 07:11] LABS: WHITE BLOOD COUNT 3.8 10^3/ul (4.8-10.8)
[2017-09-26 07:19] LABS: ADD MAN DIFF? YES; POSITIVE DIFF @See below
[2017-09-26 07:47] LABS: ALANINE AMINOTRANSFERASE 18 IU/L (13-69); ALBUMIN 2.6 g/dl (3.3-4.9); ALBUMIN/GLOBULIN RATIO 0.86; ALKALINE PHOSPHATASE 53 IU/L (42-121); ANION GAP 17 (8-16); ASPARTATE AMINO TRANSFERASE 98 IU/L (15-46); BILIRUBIN,INDIRECT 0.7 mg/dl (0-1.1); BILIRUBIN,TOTAL 0.9 mg/dl (0.2-1.3); BLOOD UREA NITROGEN 38 mg/dl (7-20); CALCIUM 7.5 mg/dl (8.4-10.2); CARBON DIOXIDE 24 mmol/L (21-31); CHLORIDE 107 mmol/L (97-110); CREATININE 3.03 mg/dl (0.44-1.00); GLUCOSE 111 mg/dl (70-220); POTASSIUM 4.8 mmol/L (3.5-5.1); SODIUM 143 mmol/L (135-144); TOTAL PROTEIN 5.6 g/dl (6.1-8.1)
[2017-09-26] MEDS: METOPROLOL 25 MG TAB PO (08:17)
[2017-09-26] MEDS: HYDROCODONE/APAP (10/325) TAB PO ×2 (08:17→13:05)
[2017-09-26 08:21] LABS: ANISOCYTOSIS 1+ (0-0); BAND NEUTROPHILS #M 1.5 10^3/ul (0.0-0.6); BAND NEUTROPHILS % (M) 40 % (0-4); ERYTHROBLAST% (NRBC) (M) 18 % (0-0); GIANT THROMBO% (M) 7 % (0-0); HYPOCHROMASIA 3+ (0-0); LYMPHOCYTES #M 1.1 10^3/ul (0.8-2.9); LYMPHOCYTES % (M) 31 % (15-51); METAMYELOCYTES #M 0.1 10^3/ul (0.0-0.0); METAMYELOCYTES %M 3 % (0-0); MICROCYTOSIS 1+ (0-0); MONOCYTE #M 0.1 10^3/ul (0.3-0.9); MONOCYTES % (M) 3 % (0-11); PLATELET ESTIMATE NORMAL; POLYCHROMASIA 1+ (0-0); SEGMENTED NEUTROPHILS (M) % 24 % (39-77); SMUDGE%M 32 % (0-0)
[2017-09-26] MEDS: HEPARIN 5,000 UNIT/0.5 ML VIAL SC (09:20)
[2017-09-26] MEDS: AMIODARONE 200 MG TAB PO (09:21)
[2017-09-26] MEDS ORDERED: SOD CHLORIDE 0.9% 500 ML IV ×2 (13:00)
[2017-09-26] MEDS ORDERED: SOD CHLORIDE 0.9% 1,000 ML IV (13:00)
[2017-09-26] MEDS ORDERED: BARIUM SULF 2% 450 ML BTL (BERRY SMOOTHIE) PO (14:30)
[2017-09-26] MEDS ORDERED: EPINEPHrine 0.1 MG/ML SYG (14:32)
[2017-09-26 14:45] LABS: AADO2 Arterial 496.5 mmHg (7.0-24.0); Allen Test ACCEPTAB; Arterial Base Excess -16.5 mmol/L (-3.0-3); Arterial Blood Gas Oxygen Sat 95.4 mmHG (95.0-98.0); Arterial COHb 1.2 % (0.0-3.0); Arterial Fraction of Oxyhgb 94.1 % (93.0-99.0); Arterial MetHb 0.2 % (0.0-1.5); Arterial Total Hemglobin 6.5 g/dl (12.0-18.0); Arterial pCO2 77.2 mmhg (35-45); MODE VENT - AC; Site Right Radial
[2017-09-26] MEDS ORDERED: NA BICARBONATE 8.4% 50 ML SYG (14:49)
[2017-09-26] MEDS ORDERED: PHENYLephrine 20MG IN 250 ML 250 ML ×3 (14:49→16:55)
[2017-09-26] MEDS: NA BICARBONATE 8.4% 50 ML SYG IV (14:58)
[2017-09-26] MEDS: SODIUM BICARBONATE (IV ADD) 150 MEQ in DEXTROSE 5% 1,000 ML IV (14:59)
[2017-09-26] MEDS ORDERED: IOHEXOL 14.3 MG(I)/ML (ADULT) BTL PO (15:00)
[2017-09-26] MEDS: DOPamine-D5W 1.6 MG/ML 250 ML IV (15:05)
[2017-09-26] MEDS: PHENYLephrine 40 MG in DEXTROSE 5% 496 ML IV ×2 (15:06→16:42)
[2017-09-26 15:07] LABS: ABNORMAL IP MESSAGE 1; HEMATOCRIT 21.8 % (37.0-47.0); MEAN CORPUSCULAR HEMOGLOBIN 20.7 pg (29.0-33.0); MEAN CORPUSCULAR HGB CONC 28.9 g/dl (32.0-37.0); MEAN CORPUSCULAR VOLUME 71.5 fl (82.0-101.0); MEAN PLATELET VOLUME 9.6 fl (7.4-10.4); NUCLEATED RED BLOOD CELLS% 15.2 /100WBC (0.0-0.0); PLATELET COUNT 168 10^3/UL (140-415); RED BLOOD COUNT 3.05 10^6/ul (4.20-5.40); RED CELL DISTRIBUTION WIDTH 15.9 % (11.5-14.5)
[2017-09-26 15:07] LABS: WHITE BLOOD COUNT 6.2 10^3/ul (4.8-10.8)
[2017-09-26 15:09] LABS: POSITIVE DIFF @See below
[2017-09-26] MEDS: VASOPRESSIN 60 UNIT in DEXTROSE 5% 57 ML IV ×2 (15:10→18:00)
[2017-09-26 15:11] LABS: ADD MAN DIFF? YES; HEMOGLOBIN 6.3 g/dl (12.0-16.0)
[2017-09-26] MEDS ORDERED: SOD CHLORIDE 0.9% 250 ML IV* (15:22)
[2017-09-26 15:27] LABS: INR 2.63; PROTIME 28.8 Sec (11.9-14.9); PT RATIO 2.3
[2017-09-26 15:28] LABS: ALANINE AMINOTRANSFERASE 647 IU/L (13-69); ALKALINE PHOSPHATASE 22 IU/L (42-121); ANION GAP 21 (8-16); BILIRUBIN,INDIRECT 0.2 mg/dl (0-1.1); BILIRUBIN,TOTAL 0.2 mg/dl (0.2-1.3); BLOOD UREA NITROGEN 28 mg/dl (7-20); CALCIUM 6.6 mg/dl (8.4-10.2); CARBON DIOXIDE 17 mmol/L (21-31); CHLORIDE 119 mmol/L (97-110); CREATININE 2.62 mg/dl (0.44-1.00); GLUCOSE 137 mg/dl (70-220); POTASSIUM 4.8 mmol/L (3.5-5.1); SODIUM 152 mmol/L (135-144); TOTAL PROTEIN 2.4 g/dl (6.1-8.1)
[2017-09-26] MEDS ORDERED: ALBUMIN HUMAN 5% 250 ML IV (15:30)
[2017-09-26 15:38] LABS: ANISOCYTOSIS 2+ (0-0); BAND NEUTROPHILS #M 0.2 10^3/ul (0.0-0.6); BAND NEUTROPHILS % (M) 4 % (0-4); EOSINOPHILS % (M) 1 % (0-7); ERYTHROBLAST% (NRBC) (M) 57 % (0-0); GIANT THROMBO% (M) 1 % (0-0); HYPOCHROMASIA 1+ (0-0); LYMPHOCYTES % (M) 81 % (15-51); METAMYELOCYTES #M 0.1 10^3/ul (0.0-0.0); METAMYELOCYTES %M 2 % (0-0); MICROCYTOSIS 2+ (0-0); MONOCYTE #M 0.1 10^3/ul (0.3-0.9); MONOCYTES % (M) 3 % (0-11); PLATELET ESTIMATE NORMAL; POIKILOCYTOSIS 1+ (0-0); POLYCHROMASIA 1+ (0-0); REACTIVE LYMPHOCYTES #M 0.1 10^3/ul (0.0-0.0); REACTIVE LYMPHOCYTES% (M) 3 % (0-0); SEG NEUT #M 0.3 10^3/ul (1.6-7.5); SEGMENTED NEUTROPHILS (M) % 5 % (39-77); SMUDGE%M 16 % (0-0)
[2017-09-26 15:44] LABS: LACTIC ACID 18.5 mmol/L (0.5-2.0)
[2017-09-26 15:45] LABS: ALBUMIN < 1.0 g/dl (3.3-4.9); ALBUMIN/GLOBULIN RATIO 0.71
[2017-09-26 15:58] LABS: MAGNESIUM 1.8 mg/dl (1.7-2.5)
[2017-09-26 15:58] LABS: PHOSPHORUS 9.9 mg/dl (2.5-4.9)
[2017-09-26 15:59] LABS: ASPARTATE AMINO TRANSFERASE 2366 IU/L (15-46)
[2017-09-26] MEDS ORDERED: VANCOMYCIN IV PER PHARMACY XX (16:00)
[2017-09-26 16:21] LABS: TROPONIN-I 0.043 ng/ml (0.000-0.120)
[2017-09-26 16:22] LABS: AADO2 Arterial 578.2 mmHg (7.0-24.0); Arterial Base Excess -21.4 mmol/L (-3.0-3); Arterial Blood Gas Oxygen Sat 89.4 mmHG (95.0-98.0); Arterial COHb 1.4 % (0.0-3.0); Arterial Fraction of Oxyhgb 88.1 % (93.0-99.0); Arterial HCO3 9.4 mmol/L (22.0-26.0); Arterial MetHb 0 % (0.0-1.5); Arterial Total Hemglobin 7.4 g/dl (12.0-18.0); MODE VENT - AC; Site A-Line
[2017-09-26] MEDS: HYDROCORTISONE 100 MG INJ IV (16:40)
[2017-09-26] MEDS: NORepinephrine 8MG/250 ML (PMX 250 ML IV (16:41)
[2017-09-26] MEDS: VANCOMYCIN 1.5 GM in SOD CHLORIDE 0.9% 250 ML IVPB (17:00)
[2017-09-26] MEDS: PIPER-TAZO 2.25 GM (PMX) 50 ML IVPB (17:00)
[2017-09-26] MEDS: CASPOFUNGIN 70 MG in SOD CHLORIDE 0.9% 250 ML IVPB (17:00)
[2017-09-26] MEDS ORDERED: METHYLENE BLUE 1% 10 ML INJ (17:09)
[2017-09-26] MEDS ORDERED: HYDROCORTISONE 100 MG INJ IV (18:00)
[2017-09-26] MEDS ORDERED: LEVOFLOXACIN 250MG/D5W (PMX) 50 ML IVPB (20:00)
[2017-09-27] MEDS ORDERED: CASPOFUNGIN 50 MG in SOD CHLORIDE 0.9% 250 ML IVPB (17:00)
[2017-09-28] MEDS ORDERED: VANCOMYCIN 1 GM 250 ML IVPB (17:00)
[2017-09-29 11:32] LABS: PATH REVIEW CH
[2017-10-01 12:12] LABS: PROCALCITONIN 21.24 ng/mL (<0.10)
== END 2017-09-26 19:13 | disposition expired | DRG 414 ==
LOC: MS4 09-25 00:01 → ICU 09-26 13:51 → E/R 12:28 → MS3 14:36
PROC: 0FT40ZZ Resection of Gallbladder, Open Approach (ICD-10-PCS; principal; 2017-09-24 11:05)
PROC: 0DNW4ZZ Release Peritoneum, Percutaneous Endoscopic Approach (ICD-10-PCS; 2017-09-24 11:05)
PROC: 0DQE0ZZ Repair Large Intestine, Open Approach (ICD-10-PCS; 2017-09-24 11:05)
PROC: 0DB78ZX Excision of Stomach, Pylorus, Via Natural or Artificial Opening Endoscopic, Diagnostic (ICD-10-PCS; 2017-09-24 11:05)
PROC: 5A12012 Performance of Cardiac Output, Single, Manual (ICD-10-PCS; 2017-09-24 11:05)
PROC: 06HN33Z Insertion of Infusion Device into Left Femoral Vein, Percutaneous Approach (ICD-10-PCS; 2017-09-24 11:05)
PROC: 04HK33Z Insertion of Infusion Device into Right Femoral Artery, Percutaneous Approach (ICD-10-PCS; 2017-09-24 11:05)
PROC: 0BH18EZ Insertion of Endotracheal Airway into Trachea, Via Natural or Artificial Opening Endoscopic (ICD-10-PCS; 2017-09-24 11:05)
PROC: 5A1935Z Respiratory Ventilation, Less than 24 Consecutive Hours (ICD-10-PCS; 2017-09-24 11:05)
DX: K80.00 Calculus of gallbladder with acute cholecystitis without obstruction (principal); J96.00 Acute respiratory failure, unspecified whether with hypoxia or hypercapnia; A41.9 Sepsis, unspecified organism; R65.21 Severe sepsis with septic shock; N17.0 Acute kidney failure with tubular necrosis; K63.1 Perforation of intestine (nontraumatic); K65.9 Peritonitis, unspecified; I50.33 Acute on chronic diastolic (congestive) heart failure; I13.0 Hypertensive heart and chronic kidney disease with heart failure and stage 1 through stage 4 chronic kidney disease, or unspecified chronic kidney disease; J84.9 Interstitial pulmonary disease, unspecified; K82.1 Hydrops of gallbladder; E87.2 Acidosis; K91.89 Other postprocedural complications and disorders of digestive system; Z66 Do not resuscitate; Z86.718 Personal history of other venous thrombosis and embolism; Z85.42 Personal history of malignant neoplasm of other parts of uterus; Z90.710 Acquired absence of both cervix and uterus; Z90.79 Acquired absence of other genital organ(s); Z90.722 Acquired absence of ovaries, bilateral; Z92.21 Personal history of antineoplastic chemotherapy; Z92.3 Personal history of irradiation; Z79.01 Long term (current) use of anticoagulants; R00.1 Bradycardia, unspecified; K29.70 Gastritis, unspecified, without bleeding; K66.0 Peritoneal adhesions (postprocedural) (postinfection); Z53.31 Laparoscopic surgical procedure converted to open procedure; J44.9 Chronic obstructive pulmonary disease, unspecified; N18.9 Chronic kidney disease, unspecified; I46.9 Cardiac arrest, cause unspecified; E11.22 Type 2 diabetes mellitus with diabetic chronic kidney disease; Y83.9 Surgical procedure, unspecified as the cause of abnormal reaction of the patient, or of later complication, without mention of misadventure at the time of the procedure; Y92.239 Unspecified place in hospital as the place of occurrence of the external cause
CPT/HCPCS: 31500; 36415; 36600; 71045; 80048; 80053; 80061; 82550; 82553; 82803; 82962; 83605; 83690; 83735; 83880; 84100; 84145; 84443; 84484; 85025; 85610; 85730; 86850; 86900; 86901; 86920; 88304; 88305; 88312; 92950; 93005; 93306; 94002; 94770; 96374; 96375; 96376; 99217; 99285-25